=== PATIENT | female | born 2000 | race Caucasian/White ===

== ENCOUNTER 2022-05-12 09:55 | Emergency (ER) | payer MEDICAID, SELFPAY ==
[2022-05-12 09:57] VITALS: BP 98/63; PULSE 85; RESP 17; TEMP 36.6; O2SAT 100; BMI 20.8
--- NOTE | 2022-05-12 10:47 | CT_ITS ---
STUDY: CT BRAIN WITHOUT CONTRAST REASON FOR EXAM: Female, 22 years old. Headache. Near syncopal episode. RADIATION DOSAGE (If Supplied By Facility): CTDIvol = ( 44.99 ) mGy, DLP = ( 779.24 ) mGycm TECHNIQUE: Transaxial CT imaging of the brain was performed without administration of intravenous contrast material. Individualized dose optimization techniques were used for this CT. COMPARISON: No relevant priors. FINDINGS: Normal soft tissue structures. Normal calvarium. Normal size ventricles and extra-axial spaces for the patient''s age. Normal white matter tracts of the cerebral hemispheres. Normal basal ganglia and thalami. Normal brainstem. Normal cerebellum. There is no intracranial hemorrhage. There are no findings of an acute ischemic infarction. Normal visualized paranasal sinuses. CT/Brain/Head without Contrast IMPRESSION: Normal unenhanced CT scan of the brain. Electronically Signed: Joseph Scott MD at 12:05 EST ,
--- NOTE | 2022-05-12 10:48 | EKG12_ITS ---
Test Reason : syncope Blood Pressure : / mmHG Vent. Rate : 069 BPM Atrial Rate : 069 BPM P-R Int : 168 ms QRS Dur : 090 ms QT Int : 408 ms P-R-T Axes : 077 047 025 degrees QTc Int : 437 ms Normal sinus rhythm Possible Left atrial enlargement Low voltage QRS Borderline ECG Confirmed by KRISTY RIVERA, YANG ([id number]), art editor MARY BETH MARTINEZ ([id number]) on 05/14/2022 11:06:42 AM Referred By: Confirmed By:YANG WAGNER MD
--- NOTE | 2022-05-12 10:55 | EX.ED.DYSGE1 ---
HPI History of Present Illness Chief Complaint: Syncope Informant: patient Narrative Narrative: 22-year-old female states that she returned home from her honeymoon in March and has been feeling nauseated at night ever since. She states that she has taken multiple home test that was negative. She states that the nausea continues to worsen. She notes occasional retro-orbital headaches. She notes that she has not really lost any weight. She denies any vision changes. She denies any new skin or hair issues. She does has a history of psoriasis. Patient denies any changes in bowel habits. Past couple days have been worse and today she had a near syncopal event while having a significant mount of nausea. She noted that her blood pressure was low and she was pale and sweaty. She did not lose consciousness. She denies any new medications. [facility] Medical History (Updated 05/12/22 @ 11:[address] Kenrick Guardado DO) Psoriasis Medical History no medical history Home Medications ondansetron HCl 4 mg tablet 4 mg PO Q6H PRN nausea and vomiting #20 tabs 05/12/22 [Rx Last Taken Unknown] Allergy/AdvReac Type Severity Reaction Status Date / Time No Known Allergies Allergy Verified 05/12/22 09:56 Surgical History no surgical history Social History Smoking Status: Never smoker ROS ROS ED Constitutional Constitutional ED: Denies chills or weight loss Eyes Eyes: Denies change in vision or diplopia ENT ENT ED: Denies ear pain, rhinorrhea or sore throat Cardiovascular Cardiovascular: Denies chest pain, orthopnea, palpitations or racing heartbeat Respiratory/Chest Respiratory/Chest: Denies cough, dyspnea or orthopnea Gastrointestinal Gastrointestinal: Reports nausea; Denies abdominal pain, constipation, diarrhea or vomiting Genitourinary Genitourinary ED: Denies dysuria, hematuria or urinary frequency Musculoskeletal Musculoskeletal: Denies arthralgias or myalgias Integumentary Denies abscess or rash Neurologic Neurologic: Reports headache(s); Denies weakness Psychiatric Psychiatric: Denies anxiety, depression, suicidal ideation or suicidal thoughts Endocrine Endocrinology: Denies polydipsia, polyphagia or polyuria Allergic/Immunologic Allergic/Immunologic ED: Denies mouth swelling, tongue swelling or urticaria EXAM Physical Exam Const Vital Signs: 05/12/22 09:57 12/12/22 10:19 Temperature 97.9 F Temperature Source Temporal Pulse Rate 85 Respiratory Rate 17 Respiratory Effort Normal Non-Labored Respiratory Pattern Normal Blood Pressure 98/63 Blood Pressure Mean 74 Pulse Ox 100 Oxygen Delivery Method Room Air Positive well nourished and well developed General Appearance ED: well developed HEENT Reports normocephalic, head/scalp atraumatic and moist mucous membranes Eyes PERRL and EOMs intact bilaterally Neck no lymphadenopathy, supple and no JVD Resp normal respiratory effort and clear to auscultation bilaterally Cardio regular rate, regular rhythm and no murmurs GI normal to inspection, nondistended, normoactive bowel sounds and non-tender Palpation: soft Back/Spine no CVA tenderness and normal ROM Extremity normal to inspection General Extremety ED: Negative for edema General Extremity: Negative for edema Neuro oriented x3 and CN's II-XII intact bilaterally Sensorium / Orientation: alert Motor Exam: strength 5/5 throughout Psych mental status grossly normal Mood & Affect: Negative for depressed or tearful Skin no rashes or lesions noted and no wounds MDM MDM MDM Narrative Medical decision making narrative: White count 14.7. Hemoglobin 13 with a platelet count of 312. CMP is normal. Lipase of 77 amylase of 41. test is negative. My interpretation of the chest x-ray is no acute process. CT of the brain was obtained and is negative for mass or blood. Patient received Zofran and IV fluids. At this point I do not have an etiology for the patient's daily nausea. Think the near syncope is most likely vasovagal mediated. Patient will be discharged home to follow-up with primary care Lab Data Attestation: I reviewed the patient's lab results. Labs: Laboratory Results - last 24 hr 05/12/22 05/12/22 05/12/22 10:35 10:35 10:35 WBC 14.7 H RBC 4.63 Hgb 13.0 Hct 40.2 MCV 86.8 MCH 28.1 MCHC 32.3 RDW Std Deviation 38.5 RDW Coeff of Edgard 12.0 Plt Count 312 MPV 10.1 Immature Gran % (Auto) 0.500 Neut % (Auto) 82.9 H Lymph % (Auto) 9.1 L [place] % (Auto) 7.2 Eos % (Auto) 0.1 Baso % (Auto) 0.2 Absolute Neuts (auto) 12.1 H Absolute Lymphs (auto) 1.33 Nucleated RBC % 0 Sodium 136 Potassium 3.8 Chloride 103 Carbon Dioxide 28.0 Anion Gap 5 BUN 13 Creatinine 0.95 Estim Creat Clear Calc 85.80 Est GFR (MDRD) Af Amer 95 Est GFR (MDRD) Non-Af 78 BUN/Creatinine Ratio 13.7 Glucose 105 Calcium 9.0 Total Bilirubin 0.80 AST 15 ALT 29 Alkaline Phosphatase 51 Total Protein 7.8 Albumin 4.0 Globulin 3.8 Albumin/Globulin Ratio 1.1 Amylase 41 Lipase 77 Serum , Qual NEGATIVE Radiography Diagnostic Testing: Clinical Impression(s) from Imaging Studies Brain CT 05/12/22 10:47 IMPRESSION: Normal unenhanced CT scan of the brain. Electronically Signed: Joseph Scott MD at 12:05 EST , Chest X-Ray 05/12/22 11:30 IMPRESSION: Normal x-ray examination of the chest. Electronically Signed: Joseph Scott MD at 12:08 EST , EKG Initial EKG: Attestation: I personally reviewed and interpreted this EKG as follows: Comments: Normal sinus rhythm with a ventricular rate of 69 bpm Discharge Plan Triage Chief Complaint: Syncope ED Provider: Kenrick Guardado Dx/Rx/DC Orders Clinical Impression: Vasovagal near syncope, Nausea Instructions: ED Near-Fainting- Vagal Reaction Prescriptions: New ondansetron HCl 4 mg tablet 4 mg PO Q6H PRN (Reason: nausea and vomiting) Qty: 20 0RF Primary Care Provider: Isaak Ramon Referrals: Isaak Ramon MD [Primary Care Provider] - Disposition Disposition: Home, Self Care
--- NOTE | 2022-05-12 10:56 | NURSING ---
NO OLD EKGS
[2022-05-12 11:00] LABS: Absolute Lymphocyte Count 1.33 X10^3/uL (0.83-4.51); Absolute Neutrophil Count 12.1 X10^3/uL (2.0-7.7); Basophil# 0.03 X10^3/uL; Basophil% 0.2 % (0-1); Eosinophil# 0.02 X10^3/uL; Eosinophils% 0.1 % (0-5); Hematocrit 40.2 % (37-47); Lymphocyte # 1.33 X10^3/ul (0.83-4.51); Lymphocyte % 9.1 % (19-41); Mean Corp Hgb Conc 32.3 g/dL (32-36); Mean Corpuscular Hgb 28.1 pg (27.0-32.0); Mean Corpuscular Volume 86.8 fL (81-99); Mean Platelet Vol. 10.1 fl (6.2-12.0); Monocyte# 1.06 X10^3/uL; Monocyte% 7.2 % (0-10); NRBC Flagged by Analyzer 0 % (0-5); Neutrophil # 12.13 X10^3/uL (2.7-7.7); Neutrophil % 82.9 % (47-70); Platelet Count 312 K/mm3 (150-450); RBC Distribution Width SD 38.5 fl (35.1-43.9); Red Blood Count 4.63 M/mm3 (4.2-5.4); White Blood Count 14.7 K/mm3 (4.4-11.0)
[2022-05-12 11:16] LABS: ALB/GLOB Ratio 1.1 RATIO (0.9-2.4); AST(SGOT) 15 U/L (15-37); Alanine Aminotransfer ALT/SGPT 29 U/L (13-56); Alkaline Phosphatase 51 U/L (45-117); Amylase 41 U/L (25-115); Anion Gap 5 (5-15); BUN 13 mg/dL (7-18); BUN/Creat Ratio 13.7 RATIO (10-20); Chloride 103 mmol/L (98-107); Creatinine, Serum 0.95 mg/dL (0.55-1.02); EST Glomerular Filtration Rate 78 mL/min (>60); Est Glom Filt Rate - Afr Amer 95 mL/min (>60); Globulin 3.8 g/dL (2.2-4.2); Glucose 105 mg/dL (74-106); Lipase 77 U/L (73-393); Potassium 3.8 mmol/L (3.5-5.1); Protein, Total 7.8 g/dL (6.4-8.2); Sodium Level 136 mmol/L (136-145)
[2022-05-12] MEDS: Ondansetron 4 MG/2 ML Vial IV (11:17)
[2022-05-12] MEDS: 0.9% Normal Saline 1,000 ML 1000 ML IV (11:17)
[2022-05-12 11:20] LABS: Internal QC Validated? YES +Cl - CLEAR BKGD
[2022-05-12 11:21] LABS: Pregnancy, Serum, hCG Quali. NEGATIVE Negative
--- NOTE | 2022-05-12 11:30 | RAD_ITS ---
STUDY: X-RAY CHEST REASON FOR EXAM: Female, 22 years old. Near syncopal episode. TECHNIQUE: Single AP portable view of the chest. COMPARISON: None. FINDINGS: EKG electrodes are seen. The lungs are clear and expanded. There is no demonstrated pleural abnormality. Normal size heart. Normal mediastinum and blessing. Normal visualized pulmonary arteries. Normal visualized aortic arch and descending thoracic aorta. Normal visualized thoracic spine. Normal visualized ribs, clavicles, and shoulders. There is no demonstrated abnormality of the visualized soft tissue structures of the upper abdomen. RAD/Chest 1 View (Portable) IMPRESSION: Normal x-ray examination of the chest. Electronically Signed: Joseph Scott MD at 12:08 [facility] ,
[2022-05-12 12:40] VITALS: PULSE 87; RESP 17; O2SAT 98
== END 2022-05-12 12:40 | disposition home or self-care (01) ==
PROVIDERS: Emergency Provider Emergency Medicine; PCP Family Medicine; Visit Provider Emergency Medicine
DX: R55 Syncope and collapse (principal); R11.0 Nausea
CPT/HCPCS: 70450; 71045; 80053; 82150; 83690; 84703; 85025; 93005; 96361; 96374; 99283; J7030; J2405

== ENCOUNTER → 2023-05-01 | Outpatient (CLI) | payer OTHER, SELFPAY | END | disposition home or self-care (01) | PROVIDERS: PCP Family Medicine; Referring Provider Registered Nurse; Visit Provider Registered Nurse | DX: O36.80X0 Pregnancy with inconclusive fetal viability, not applicable or unspecified (principal); Z3A.00 Weeks of gestation of pregnancy not specified | CPT/HCPCS: 36415; 84702; 86850; 86900; 86901 ==

== ENCOUNTER → 2023-05-13 | Outpatient (CLI) | payer OTHER, SELFPAY ==
[2023-05-15 22:06] LABS: Chlamydia By Nucleic Acid AMP Negative (Negative); Gonococcus By Nucleic Acid AMP Negative (Negative)
[2023-05-20 22:51] LABS: HPV Reflexed? NOT INDICATED
== END | disposition home or self-care (01) ==
LOC: LABSPEC 16:51
PROVIDERS: PCP Family Medicine; Referring Provider Registered Nurse; Visit Provider Registered Nurse
DX: Z34.90 Encounter for supervision of normal pregnancy, unspecified, unspecified trimester (principal)
CPT/HCPCS: 87086; 87088; 87491; 87591; 88175; G0145

== ENCOUNTER → 2023-05-20 | Outpatient (CLI) | payer OTHER, SELFPAY | END | disposition home or self-care (01) | PROVIDERS: PCP Family Medicine; Visit Provider Advanced Practice Midwife | DX: O26.899 Other specified pregnancy related conditions, unspecified trimester (principal); R30.0 Dysuria; Z3A.00 Weeks of gestation of pregnancy not specified | CPT/HCPCS: 87086; 87088 ==

== ENCOUNTER → 2023-07-08 | Outpatient (CLI) | payer OTHER, SELFPAY ==
[2023-07-08 12:22] LABS: Absolute Lymphocyte Count 2.13 X10^3/uL (0.83-4.51); Absolute Neutrophil Count 7.1 X10^3/uL (2.0-7.7); Basophil# 0.07 X10^3/uL; Basophil% 0.7 % (0-1); Eosinophil# 0.11 X10^3/uL; Eosinophils% 1.1 % (0-5); Hematocrit 34.6 % (37-47); Hemoglobin 11.6 g/dL (12.0-15.0); Lymphocyte # 2.13 X10^3/ul (0.83-4.51); Lymphocyte % 20.7 % (19-41); Mean Corp Hgb Conc 33.5 g/dL (32-36); Mean Corpuscular Hgb 29.2 pg (27.0-32.0); Mean Corpuscular Volume 87.2 fL (81-99); Mean Platelet Vol. 9.9 fl (6.2-12.0); Monocyte# 0.78 X10^3/uL; Monocyte% 7.6 % (0-10); NRBC Flagged by Analyzer 0 % (0-5); Neutrophil # 7.14 X10^3/uL (2.7-7.7); Neutrophil % 69.5 % (47-70); Platelet Count 293 K/mm3 (150-450); RBC Distribution Width CV 13.7 % (11.6-14.6); RBC Distribution Width SD 43.8 fl (35.1-43.9); Red Blood Count 3.97 M/mm3 (4.2-5.4); White Blood Count 10.3 K/mm3 (4.4-11.0)
[2023-07-08 13:42] LABS: HIV - WCH Non-Reactive (Nonreactive); Hepatitis B Surface Antigen Non-Reactive (Nonreactive); Hepatitis C Antibody Non-Reactive (Nonreactive); Rubella IgG Reactive (Nonreactive); Syphilis Antibodies Non-reactive
--- OUTSIDE RECORDS SUMMARY | 2023-07-08 16:18 | XMS RPT_ITS | CCD ---
Author Name Unknown Address [address] [facility] [address] [place] [address] Organization [facility] Care Team Providers Care Union Organizer Name Role Phone Sunil Reyna MD Primary Care Provider BASAR, JONATHAN Admitting Unavailable BASAR JONATHAN Attending Unavailable SUNIL REYNA Primary Care Unavailable MERANTO, CRYSTAL Attending Unavailable SUNIL REYNA Primary Care Unavailable MERANTO, CRYSTAL Attending Unavailable SUNIL REYNA Referring Unavailable SUNIL REYNA Primary Care Unavailable MERANTO, CRYSTAL Referring Unavailable SUNIL REYNA Attending Unavailable SUNIL REYNA Primary Care Unavailable SUNIL REYNA Attending Unavailable Allergies Allergy Classification Reported Allergen(s) Allergy Type Date of Onset Reaction(s) Facility [facility] (1 source) [facility] Drug Allergy 11-08-2020 [facility] Unclassified (6 sources) Milk-Related Compounds Propensity to adverse reactions to drug 11-08-2020 [facility] (4 sources) [facility] Drug Allergy 11-08-2020 [facility] Medications Current Medications Medication Drug Class(es) Dates Sig (Normalized) Sig (Original) ondansetron 4 mg oral tablet (3 sources) Serotonin-3 Receptor Antagonist Start: 10-13-2022 take 1 tablet by mouth every eight hours as needed for nausea and vomiting ondansetron (Zofran) 4 MG tablet Take 1 tablet (4 mg) by mouth every 8 hours as needed for nausea or vomiting. 20 tablet 0 10/13/2022 Active Problems Active Problems Problem Classification Problem Date Documented Da te Episodic/Chronic Anxiety disorders (6 sources) Anxiety; Translations: [Anxiety disorder, unspecified] Onset: 02-21-2019 02-21-2019 Chronic Miscellaneous mental health disorders (6 sources) Eating disorder; Translations: [Eating disorder, unspecified] Onset: 05-13-2017 05-13-2017 Chronic Mood disorders (6 sources) Recurrent major depressive episodes, moderate ; Translations: [Major depressive disorder, recurrent, moderate] Onset: 03-21-2020 03-21-2020 Chronic Other inflammatory condition of skin (7 sources) Psoriasis; Translations: [Psoriasis, unspecified] Onset: 09-19-2016 Chronic Other non-traumatic joint disorders (1 source) Hip pain; Translations: [Pain in unspecified hip] Episodic Residual codes; unclassified (1 source) Gestation period, 8 weeks; Translations: [8 weeks gestation of ] Onset: 04-17-2023 04-17-2023 Episodic Unclassified (2 sources) Results; Translations: [Results] Onset: 04-17-2023 Past or Other Problems Problem Classification Problem Date Documented Da te Episodic/Chronic Abdominal pain (9 sources) Generalized abdominal pain; Translations: [Generalized abdominal pain] Onset: 06-11-2022 06-11-2022 Episodic Acute and chronic tonsillitis (1 source) Acute tonsillitis; Translations: [Acute tonsillitis, unspecified] Onset: 02-24-2018 Resolved: 02-21-2019 02-21-2019 Episodic Gastritis and duodenitis (2 sources) Gastritis, unspecified, without bleeding; Translations: [Gastritis, unspecified, without bleeding] Onset: 07-22-2022 Episodic Gastrointestinal hemorrhage (9 sources) Blood-tinged feces; Translations: [Melena] Onset: 06-11-2022 Resolved: 04-17-2023 06-11-2022 Episodic Genitourinary symptoms and ill-defined conditions (5 sources) Dysuria; Translations: [Dysuria] Onset: 05-14-2022 Resolved: 04-17-2023 05-14-2022 Episodic Nausea and vomiting (9 sources) Nausea; Translations: [Nausea] Onset: 05-13-2022 06-11-2022 Episodic Other connective tissue disease (1 source) Plantar fasciitis of right foot; Translations: [Plantar fascial fibromatosis] Onset: 09-19-2016 Resolved: 02-21-2019 02-21-2019 Episodic Other gastrointestinal disorders (2 sources) Constipation, unspecified; Translations: [Constipation, unspecified] Onset: 07-07-2022 Episodic Syncope (10 sources) Vasovagal symptom; Translations: [Syncope and collapse] Onset: 05-13-2022 Resolved: 04-17-2023 05-13-2022 Episodic Results Test Name Value Interpretation Reference Range Facil ity Encounters Encounter Date Encounter Type Care Provider Facility Start: 05-21-2023 ambulatory Evelyn Baker RN [facility] Clinical Communication Start: 05-21-2023 Patient encounter procedure Evelyn Baker RN [facility] Clinical Communication Start: 04-17-2023 End: 04-17-2023 ambulatory SUNIL REYNA [facility] Start: 10-11-2022 Refill Sunil Reyna MD Work Phone: [facility] Start: 07-22-2022 End: 07-22-2022 ambulatory CRYSTAL MERANTO [facility] Start: 07-07-2022 End: 07-07-2022 ambulatory JONATHAN BJAR [facility] Start: 07-02-2022 End: 07-02-2022 Subsequent hospital visit by physician [facility] Exam Room [address] [facility] [address] Procedures Date Procedure Procedure Detail Performing Clinician Start: 01-01-2021 Radiologic examinati on pelvis 1/2 views Rocky Dave MD Work Phone: Plan of Treatment Date Care Activity Detail Author Start: 01-26-2050 Zoster Vaccines (1 of 2) Zoste r Vaccines (1 of 2) [facility] Start: 01-30-2023 Influenza vaccination [facility] Start: 01-26-2023 DTaP/Tdap/Td vaccine (7 - Td or Tdap) DTaP/Tdap/Td vaccine (7 - Td or Tdap) [facility] Work Phone: Start: 01-26-2023 DTaP/Tdap/Td Vaccine s (7 - Td or Tdap) DTaP/Tdap/Td Vaccines (7 - Td or Tdap) [facility] Start: 11-23-2021 Screening for Chlamy ruslan trachomatis Chlamydia screen [facility] Work Phone: Immunizations Immunization Date Immunization Notes Care Provider Fa julien 02-12-2017 Human Papillomavirus 9-valent vaccine Rocky Dave MD Work Phone: [facility] Work Phone: 02-12-2017 HPV, unspecified formulation Sunil Reyna MD Work Phone: [facility] 01-26-2013 tetanus toxoid, redu niall diphtheria toxoid, and acellular pertussis vaccine, adsorbed Rocky Dave MD Work Phone: [facility] Work Phone: 02-06-2006 diphtheria, tetanus toxoids and acellular pertussis vaccine Rocky Dave MD Work Phone: [facility] 01-07-2006 measles, mumps and rubella virus vaccine Rocky Dave MD Work Phone: [facility] Work Phone: 01-07-2006 poliovirus vaccine, inactivated Rocky Dave MD Work Phone: [facility] Work Phone: 06-15-2001 diphtheria, tetanus toxoids and acellular pertussis vaccine Rocky Dave MD Work Phone: [facility] Work Phone: 06-15-2001 haemophilus influenz ae type b vaccine, PRP-OMP conjugate Rocky Dave MD Work Phone: [facility] Work Phone: 06-15-2001 hepatitis B vaccine, unspecified formulation Rocky Dave MD Work Phone: [facility] Work Phone: 06-15-2001 measles, mumps and rubella virus vaccine Rocky Dave MD Work Phone: [facility] Work Phone: 06-15-2001 varicella virus vaccine Will sara Dave MD Work Phone: [facility] Work Phone: 2000 diphtheria, tetanus toxoids and acellular pertussis vaccine Rocky Dave MD Work Phone: [facility] Work Phone: 2000 haemophilus influenz ae type b vaccine, PRP-OMP conjugate Rocky Dave MD Work Phone: [facility] Work Phone: 2000 pneumococcal conjuga te vaccine, 7 valent Rocky Dave MD Work Phone: [facility] Work Phone: 2000 poliovirus vaccine, inactivated Rocky Dave MD Work Phone: [facility] Work Phone: 2000 diphtheria, tetanus toxoids and acellular pertussis vaccine Rocky Dave MD Work Phone: [facility] Work Phone: 2000 pneumococcal conjuga te vaccine, 7 valent Rocky Dave MD Work Phone: [facility] Work Phone: 2000 poliovirus vaccine, inactivated Rocky Dave MD Work Phone: [facility] Work Phone: 2000 diphtheria, tetanus toxoids and acellular pertussis vaccine Rocky Dave MD Work Phone: [facility] Work Phone: 2000 haemophilus influenz ae type b vaccine, PRP-OMP conjugate Rocky Dave MD Work Phone: [facility] Work Phone: 2000 hepatitis B vaccine, unspecified formulation Rocky Dave MD Work Phone: [facility] 2000 pneumococcal conjuga te vaccine, 7 valent Rocky Dave MD Work Phone: [facility] Work Phone: 2000 poliovirus vaccine, inactivated Rocky Dave MD Work Phone: [facility] Work Phone: 2000 haemophilus influenz ae type b vaccine, PRP-OMP conjugate Rocky Dave MD Work Phone: [facility] Work Phone: 2000 hepatitis B vaccine, unspecified formulation Rocky Dave MD Work Phone: [facility] Work Phone: NEGATED: Highlighted row has not occurred!02-26-2018 Influenza, Quadv, 6 mo and older, IM, PF (Flulaval, Fluarix) Rocky Dave MD Work Phone: [facility] Work Phone: Payers Date Payer Category Payer Medicaid [id number] 2022 Medicaid [id number] 2022 Medicaid [id number] 2022 Unknown [employer] [id number] 2022-Present [address] [place] [address] Commercial [id number] 2022 Unknown [id number] 2020 Unknown [facility] [id number] 2020-Present [phone] [address] [place] [address] [id number] Social History Date Type Detail Facility Start: 01-01-2021 Tobacco smoking stat [facility] Never smoker [facility] Start: 01-01-2021 Tobacco use and exposure Never used [facility] Start: 01-01-2021 End: 04-17-2023 Alcohol intake Current non-drinker of alcohol (finding) [facility] Work Phone: Start: 11-23-2020 History SDOH Financial 4 [facility] Work Phone: Start: 11-23-2020 End: 05-13-2022 History SDOH Food Worry 1 [facility] Work Phone: Start: 2000 Sex Assigned At Not on file [facility] Work Phone: Start: 06-21-2022 End: 07-01-2022 Exposure to SARS-CoV-2 (event) Not sure [facility] Start: 05-13-2022 History SDOH Financial 5 [facility] Start: 05-13-2022 End: 07-07-2022 History SDOH IPV Fear 2 [facility] Start: 05-13-2022 End: 07-07-2022 History of Social function [facility] Start: 05-13-2022 End: 07-07-2022 Humiliation, Afraid, Rape, and Kick questionnaire [HARK] [facility] Within the last year , have you been afraid of your partner or ex-partner? No [facility] How hard is it for y ou to pay for the very basics like food, housing, medical care, and heating Not hard at all [facility] (I/We) worried wheth er (my/our) food would run out before (I/we) got money to buy more. Never true [facility] Start: 03-01-2023 [facility]al [facility] Goals Date Patient Goal Desired Activity /State Clinical Notes 02-01-2021 to 05-21-2023 Telephone Encounter - Evelyn Baker RN - 05/21/2023 1:19 PM ESTTelephone Encounter - Evelyn Baker RN - 05/21/2023 1:19 PM EST Note Date & Type Note Facility 05-21-2023 Telephone encounter Note S: The patient is calling the [facility] about urinary symptoms B: She is 10 weeks - no bleeding or related issues A: She was to the OB yesterday; it was positive for antibiotics and also did a culture. They are supposed to be sending in an antibiotic for her but it is not there yet. She is asking for advice. She could be seen in [place] however, she is working all day tomorrow. R: She last talked to them this morning; often these requests take time and are done at the end of the day when a provider is done seeing patients or the provider may be currently delivering a baby. I would give it time and call the pharmacy again this evening. Reason for Disposition Information only question and nurse able to answer Protocols used: Information Only Call - No [id number] [facility] 05-21-2023 Miscellaneous Notes S: The patient is calling the [facility] about urinary symptoms B: She is 10 weeks - no bleeding or related issues A: She was to the OB yesterday; it was positive for antibiotics and also did a culture. They are supposed to be sending in an antibiotic for her but it is not there yet. She is asking for advice. She could be seen in [place] however, she is working all day tomorrow. R: She last talked to them this morning; often these requests take time and are done at the end of the day when a provider is done seeing patients or the provider may be currently delivering a baby. I would give it time and call the pharmacy again this evening. Reason for Disposition Information only question and nurse able to answer Protocols used: Information Only Call - No [id number] documented in this encounter [facility] 10-13-2022 Telephone encounter Note Rx sent. [facility] 10-13-2022 Miscellaneous Notes Rx sent. Prescription Request: Last medication check: 06-11-22 Last physical exam: 02-21-19 Next scheduled appointment: none Last date of refill on this medication 09-09-22 documented in this encounter [facility] 10-13-2022 Telephone encounter Note Prescription Request: Last medication check: 06-11-22 Last physical exam: 02-21-19 Next scheduled appointment: none Last date of refill on this medication 09-09-22 [facility] 07-07-2022 Note Patient: Raul Campos ic Procedure Summary Date: 07/07/22 Room / Location: [place] [address] / [facility] Gastroenterology Anesthesia Start: 1132 Anesthesia Stop: 1213 Procedures: EGD, COLONOSCOPY COLONOSCOPY Diagnosis: Nausea with vomiting, unspecified Hemorrhage of anus and rectum Generalized abdominal pain Constipation, unspecified (Nausea with vomiting, unspecified [R11.2]) (Hemorrhage of anus and rectum [K62.5]) (Generalized abdominal pain [R10.84]) (Constipation, unspecified [K59.00]) Providers: Jonathan Chavez MD Responsible Provider: Edi Costello Jr., MD Anesthesia Type: TIVA ASA Status: 2 Anesthesia Type: TIVA Vitals Value Taken Time BP 97/58 07/07/22 1215 Temp 97.4 07/07/22 1215 Pulse 84 07/07/22 1215 Resp 16 07/07/22 1215 SpO2 100 07/07/22 1215 Anesthesia Post Evaluation Patient location during evaluation: PACU Patient participation: complete - patient participated Level of consciousness: awake and alert Pain score: 0 Pain management: satisfactory to patient Multimodal analgesia pain management approach Airway patency: patent Two or more strategies used to mitigate risk of obstructive sleep apnea Cardiovascular status: acceptable and hemodynamically stable Respiratory status: acceptable Hydration status: acceptable No notable events documented. MIPS #430 PONV Patient did not receive an inhalational anesthetic ([id number] MIPS # 424 Perioperative Temperature Management Anesthesia time was less than 60 minutes ([id number]) MIPS #477 Multimodal Pain Management Not emergent case Patient was not administered multimodal pain management Patient reports no pain in PACU MIPS #404 Anesthesiology Smoking Abstinence The patient is not a current smoker (e.g. cigarette, cigar, pipe, e-cigarette/vaping/marijuana) I completed my handoff to the receiving clinician during which we: 1. Identified the patient 2. Identified the responsible provider 3. Reviewed the pertinent medical history 4. Discussed the surgical course 5. Reviewed intra-op anesthesia management and issues during anesthesia 6. Set expectations for post-procedure period 7. Allowed opportunity for questions and acknowledgement of understanding. [facility] 07-07-2022 Note Patient: Raul Campos ic Procedure Summary Date: 07/07/22 Room / Location: [place] [address] / [facility] Gastroenterology Anesthesia Start: 1132 Anesthesia Stop: 1213 Procedures: EGD, COLONOSCOPY COLONOSCOPY Diagnosis: Nausea with vomiting, unspecified Hemorrhage of anus and rectum Generalized abdominal pain Constipation, unspecified (Nausea with vomiting, unspecified [R11.2]) (Hemorrhage of anus and rectum [K62.5]) (Generalized abdominal pain [R10.84]) (Constipation, unspecified [K59.00]) Providers: Jonathan Chavez MD Responsible Provider: Edi Costello Jr., MD Anesthesia Type: TIVA ASA Status: 2 Anesthesia Type: TIVA Vitals Value Taken Time BP 97/58 07/07/22 1213 Temp 97.4 07/07/22 1213 Pulse 84 07/07/22 1213 Resp 16 07/07/22 1213 SpO2 100 07/07/22 1213 Anesthesia Post Evaluation Patient location during evaluation: PACU Patient participation: complete - patient participated Level of consciousness: sleepy but conscious Pain management: satisfactory to patient Airway patency: patent Dental Injury: no Cardiovascular status: acceptable, blood pressure returned to baseline and hemodynamically stable Respiratory status: acceptable and spontaneous ventilation Hydration status: euvolemic Nausea/Vomiting: controlled No notable events documented. Patient can be discharged once all PACU criteria has been met. [facility] 07-07-2022 Note GASTROENTEROLOGY PHY SICIAN PRE PROCEDURE NOTE HPI: Raul Dewitt is a 22 y.o. female who is here today for planned endoscopic examination. All: Allergies Allergen Reactions Milk-Related Compounds [facility] Meds: No current facility-administered medications on file prior to encounter. Current Outpatient Medications on File Prior to Encounter Medication Sig Dispense Refill bisacodyl (Dulcolax) 5 MG EC tablet Do not crush, chew, or split. 1 day before the procedure, take 4 dulcolax at 11:00am. On day of the procedure, take 2 dulcolax at 4:00am. 6 tablet 0 ondansetron (Zofran) 4 MG tablet 4 mg. polyethylene glycol (GaviLyte-G) 236 g solution Day before the procedure, start at 5pm. Drink the 1st half of jug every 20-30 min. Finish by 7pm. Day of the procedure, drink 2nd half of the jug, 8 ounces, every 20-30 min, start at 4am. Complete by 6am. 4000 mL 0 psyllium (Metamucil Smooth Texture) 58.6 % powder Take 5.12 g (3 g of fiber) by mouth daily. 283 g 11 PMH: Past Medical History: Diagnosis Date Depression Eating disorder Psoriasis No reactions to anesthesia in the past. Airway patent PE: VS: BP 116/65 Pulse 74 Temp 37.3 ?C (99.2 ?F) (Temporal) Resp 14 Ht 5' 6 (1.676 m) Wt 128 lb (58.1 kg) SpO2 94% BMI 20.66 kg/m? Body mass index is 20.66 kg/m?. General: Patient in no distress CVS: Regular rate & rhythm Respiratory: Clear to auscultation Abdomen: soft and non tender ASA score : 3 ASSESSMENT & PLAN: Risks & benefits of the endoscopic procedure(s) and MAC /GA sedation were personally explained to patient / family along with alternatives to the procedure in detail including radiological and surgical options. The risks of the endoscopic procedure include but are not limited to risk from anesthesia, respiratory failure, infection, bleeding, perforation, pancreatitis with its sequelae , damage to the adjacent organs, missed lesions and need for further procedure, surgery or interventional radiological intervention, from procedure or complications. We made a shared decision to proceed with planned procedure []EGD []Colonoscopy [x]EGD&Colonoscopy Jonathan Chavez MD Gastroenterology [facility] 07-07-2022 Note Endoscopy Center- [facility] Patient Name: Raul Dewitt Procedure Date: 07/07/2022 11:21 AM Gender: Female Date of : 2000 Age: 22 Admit Type: Outpatient Note Status: Finalized Endoscopist: Jonathan Chavez MD Procedure: Upper GI endoscopy Indications: Nausea, bloating Findings: Esophagus was normal Erythema and small erosions noted in the gastric antrum, random gastric biopsies obtained D1 and D2 were normal, biopsies obtained Impression: Gastric erosions Recommendation: - Patient has a contact number available for emergencies. The signs and symptoms of potential delayed complications were discussed with the patient. Return to normal activities tomorrow. Written discharge instructions were provided to the patient. - Continue present medications. - Omeprazole 40 mg twice daily at least 30 minutes before meals for 2 months followed by once daily - Avoid NSAIDs - Resume previous diet. - Return to referring physician as previously scheduled. Referring MD: Suinl Reyna MD Medicines: Monitored Anesthesia Care Procedure: Pre-Anesthesia Assessment: - Prior to the procedure, a History and Physical was performed, and patient medications and allergies were reviewed. The patient is competent. The risks and benefits of the procedure and the sedation options and risks were discussed with the patient. All questions were answered and informed consent was obtained. Patient identification and proposed procedure were verified by the physician, the nurse and the apprentice architect in the pre-procedure area in the procedure room in the endoscopy suite. Mental Status Examination: normal. Airway Examination: normal oropharyngeal airway and neck mobility. Respiratory Examination: clear to auscultation. CV Examination: normal. Prophylactic Antibiotics: The patient does not require prophylactic antibiotics. Prior Anticoagulants: The patient has taken no anticoagulant or antiplatelet agents. ASA Grade Assessment: II - A patient with mild systemic disease. After reviewing the risks and benefits, the patient was deemed in satisfactory condition to undergo the procedure. The anesthesia plan was to use monitored anesthesia care (MAC). Immediately prior to administration of medications, the patient was re-assessed for adequacy to receive sedatives. The heart rate, respiratory rate, oxygen saturations, blood pressure, adequacy of pulmonary ventilation, and response to care were monitored throughout the procedure. The physical status of the patient was re-assessed after the procedure. After obtaining informed consent, the endoscope was passed under direct vision. Throughout the procedure, the patient's blood pressure, pulse, and oxygen saturations were monitored continuously. The Endoscope was introduced through the mouth, and advanced to the second part of duodenum. The upper GI endoscopy was accomplished with ease. The patient tolerated the procedure well. Complications: No immediate complications. Estimated blood loss: None. Attending Participation: I personally performed the entire procedure. Jonathan hCavez MD 07/07/2022 11:57:11 AM This report has been signed electronically. Number of Addenda: 0 Note Initiated On: 07/07/2022 11:21 AM [facility] 07-07-2022 Note Endoscopy Center- [facility] Patient Name: Raul Dewitt Procedure Date: 07/07/2022 11:19 AM Gender: Female Date of : 2000 Age: 22 Admit Type: Outpatient Note Status: Finalized Endoscopist: Jonathan Chavez MD Procedure: Colonoscopy Indications: Constipation Findings: TI was intubated and it was normal Colon segments were normal Impression: Normal colonoscopy Recommendation: - Patient has a contact number available for emergencies. The signs and symptoms of potential delayed complications were discussed with the patient. Return to normal activities tomorrow. Written discharge instructions were provided to the patient. - Continue present medications. - Resume previous diet. - High fiber diet. - Return to referring physician as previously scheduled. Referring MD: Sunil Reyna MD Medicines: Monitored Anesthesia Care Procedure: Pre-Anesthesia Assessment: - Prior to the procedure, a History and Physical was performed, and patient medications and allergies were reviewed. The patient is competent. The risks and benefits of the procedure and the sedation options and risks were discussed with the patient. All questions were answered and informed consent was obtained. Patient identification and proposed procedure were verified by the physician, the nurse and the apprentice architect in the pre-procedure area in the procedure room in the endoscopy suite. Mental Status Examination: alert and oriented. Airway Examination: normal oropharyngeal airway and neck mobility. Respiratory Examination: clear to auscultation. CV Examination: normal. Prophylactic Antibiotics: The patient does not require prophylactic antibiotics. Prior Anticoagulants: The patient has taken no anticoagulant or antiplatelet agents. ASA Grade Assessment: III - A patient with severe systemic disease. After reviewing the risks and benefits, the patient was deemed in satisfactory condition to undergo the procedure. The anesthesia plan was to use monitored anesthesia care (MAC). Immediately prior to administration of medications, the patient was re-assessed for adequacy to receive sedatives. The heart rate, respiratory rate, oxygen saturations, blood pressure, adequacy of pulmonary ventilation, and response to care were monitored throughout the procedure. The physical status of the patient was re-assessed after the procedure. After I obtained informed consent, the scope was passed under direct vision. Throughout the procedure, the patient's blood pressure, pulse, and oxygen saturations were monitored continuously. The Colonoscope was introduced through the anus and advanced to the terminal ileum. The colonoscopy was performed with ease. The patient tolerated the procedure well. The quality of the bowel preparation was excellent. The terminal ileum, ileocecal valve, appendiceal orifice, and rectum were photographed. Complications: No immediate complications. Attending Participation: I personally performed the entire procedure. Jonathan Chavez MD 07/07/2022 12:09:24 PM This report has been signed electronically. Number of Addenda: 0 Note Initiated On: 07/07/2022 11:19 AM [facility] 07-07-2022 Note Patient: Raul schuler Procedure Information Date/Time: 07/07/22 1345 Procedures: EGD, COLONOSCOPY - EGD/Colon 60 min. COLONOSCOPY Location: [place] [address] / [facility] Gastroenterology Providers: Jonathan Chavez MD Relevant Problems Neuro/Psych (+) Anxiety (+) Moderate episode of recurrent major depressive disorder (HCC) Past Medical History: Past Medical History: No date: Depression No date: Eating disorder No date: Psoriasis Past Surgical History: Past Surgical History: No date: TONSILLECTOMY Social History: TOBACCO: reports that she has never smoked. She has never used smokeless tobacco. ETOH: reports no history of alcohol use. Social History Substance and Sexual Activity Drug Use No Family History: Family History Problem Relation Name Age of Onset ? Substance Abuse Mother ? No Known Problems Father Screening: Having periods Clinical information reviewed: Tobacco Allergies Meds Med Hx Surg Hx OB Status Fam Hx Soc Hx Physical Exam Airway Mallampati: II TM distance: >3 FB Neck ROM: full Mouth Open: normalendotracheal tube not in place Cardiovascular Dental Pulmonary Abdominal Anesthesia Plan ASA 2 TIVA The patient is not a current smoker. Anesthetic plan and risks discussed with patient. patient is NPO CELESTINE Screening Labs: Lab Results Component Value Date WBC 8.0 06/11/2022 HGB 12.5 06/11/2022 HCT 37.2 06/11/2022 MCV 85.3 06/11/2022 PLT 351 06/11/2022 Lab Results Component Value Date NA 138 11/23/2020 K 4.1 11/23/2020 CL 105 11/23/2020 CO2 22 06/11/2022 BUN 16 06/11/2022 CREATININE 0.80 06/11/2022 GLUCOSE 81 06/11/2022 CALCIUM 9.5 06/11/2022 PROT 7.2 06/11/2022 ALKPHOS 42 06/11/2022 AST 21 06/11/2022 ALT 17 06/11/2022 EGFR 107 06/11/2022 No echocardiogram results found for the past 14 days No results found for this or any previous visit. [facility] 06-30-2022 Note Patient is scheduled for a procedure(s) on 07/07/[address] Chavez. Message has been left reminding the patient of their upcoming procedures and to give the office a call if they have questions. If mychart is available a copy of the prep was resent. Call back number also provided and office hours. [facility] 06-11-2022 Note CMP, C-reactive prot ein and sed rate, CT scan of the abdomen with contrast and GI referral. [facility] 02-27-2021 Note HNO ID: [id number] Author: Kenrick Hardin MD Service: ? Author Type: Physician Type: Progress Notes Filed: 02/27/2021 12:44 PM Note Text: Subjective: Patient status post a punch biopsy to her right breast completed on 02/18/2021. This came back as basilar hyperpigmentation with melanoderma. There is no signs of malignancy. And some bacteria of folliculitis was identified. Objective:. Last menstrual period 01/30/2021. Suture was removed site is clean without signs of infection Assessment: Aftercare Plan: This point I do not think there is any further biopsies we need to do a pigmented lesions. She is continue to use Madelyn cream on the nipple itself to make sure that it stays moist and if it has any further scaling or cracking I would like to see her back. [facility] 02-18-2021 Note HNO ID: [id number] Author: Vonda Shah LPN Service: ? Author Type: ? Type: Progress Notes Filed: 02/18/2021 3:49 PM Note Text: UNIVERSAL PROTOCOL / SAFETY CHECKLIST Procedure to be Performed: Punch Biopsy Right Breast Sign In: A Moment of CARE was completed. Personnel directly involved with the procedure wore the appropriate PPE (Personal Protective Equipment). Patient/Surrogate Stated/Verified: PATIENT VERIFIED(optional for EMERGENT procedures): Patient name, Date of , Relevant allergies and The intended procedure Time Out Communication: Intended patient and procedure match the source documents. Consent documented and matches the intended procedure. Sign Out: SIGN OUT (optional for EMERGENT procedures): All specimen containers correctly labeled. Vonda Shah LPN [facility] 02-18-2021 Note HNO ID: [id number] Author: Kenrick Hardin MD Service: ? Author Type: Physician Type: Progress Notes Filed: 02/18/2021 3:45 PM Note Text: Preoperative diagnosis: Uncertain skin lesion to right breast Postoperative diagnosis: The same Procedure: 3 mm punch biopsy of abnormal skin lesion to right breast Surgeon: Lashawn Procedure: At the 10 o'clock position of the right breast patient had several darkened pigmented lesions with some atypical symmetry to them and being black in nature. I prepped the area with Betadine. I injected 1% lidocaine plain. A 3 mm punch biopsy was attained of this lesion. Skin was brought together with a single suture of 5-0 nylon. Sterile dressings were applied and the patient tolerated the procedure well. Patient has a scaly area on her nipple areolar complex at the 6 o'clock position in addition the patient has psoriasis on the right side of her chest extending up towards the breast area. I do not think I want to do a punch biopsy of this today I would like for her to use some Madelyn cream for 2 weeks and if she does not notice any changes in the itching or the softness of the skin and I like for her to use steroid cream for 2 weeks. If at that time we are still dealing with an atypical scaly lesion then I will do a punch biopsy of this area on her nipple. [facility] 02-12-2021 Note HNO ID: [id number] Author: Maria Isabel Orona MD Service: ? Author Type: Physician Type: Progress Notes Filed: 02/14/2021 3:33 PM Note Text: Raul Blevins 2000 REFERRING PHYSICIAN: Lucia Colin MD CHIEF COMPLAINT: New HPI: The patient is a 21 year old female presents with skin changes of uncertain nature of her right breast. She was concerned about these skin changes and therefore went to see her bottle hop. She is referred to this office for further evaluation. She notes a patchy area of the right areolar that is pruritic. She has noted this for about two months. She has also noted multiple dark nevi of an area lateral to her nipple/areolar complex for which she states that she is concerned about. She notes yellow discharge from the scaly patch of skin. She denies nipple discharge. She states that she sometimes feels a lump beneath the scaly patch, but notes none at present. She does not know her family history for cancer. PAST MEDICAL HISTORY Diagnosis Date - Psoriasis PAST SURGICAL HISTORY: none Current Outpatient Medications Medication Sig - diazePAM (VALIUM) 5 mg tablet Take 1 tablet by mouth available for use prior to procedure for 1 day. ALLERGIES: Patient has no known allergies. PERSONAL HISTORY: Social History Tobacco Use - Smoking status: Never Smoker - Smokeless tobacco: Never Used Vaping Use - Vaping Use: Never used Substance Use Topics - Alcohol use: Never - Drug use: Never FAMILY HISTORY Problem Relation Age of Onset - Multiple Sclerosis Maternal Grandmother The review of systems data was entered by the nurse and reviewed by dc Nursing Notes: Wendy Obando Ma 02/12/2021 9:16 AM Signed REVIEW OF SYSTEMS: General: The patient denies fatigue, denies weight loss, denies weight gain, denies feeling hot, and denies feelings of cold. Eyes: The patient denies glaucoma, denies eye injury/surgery, wears glasses or contacts. Ear/Nose/Throat: The patient NOTES allergies, denies hayfever, denies ear infections, and denies bloody noses. Cardiovascular: The patient denies chest pain, denies heart disease, denies high blood pressure,denies cardiac stent, denies prior heart attack, denies irregular heart beat, denies high cholesterol, denies poor circulation, denies heart failure, other cardiac issues, denies claudication, denies cold feet, denies peripheral arterial stent. Respiratory: The patient denies tuberculosis, denies pneumonia, denies frequent cough, denies pulmonary embolism, denies shortness of breath, and denies coughing up blood. Gastrointestinal: The patient denies difficulty swallowing, denies acid reflux, denies ulcers, denies vomiting, denies jaundice/hepatitis, denies gallbladder problems, denies black or tarry stools, denies hemorrhoids, denies bleeding from rectum, denies diverticulitis, denies constipation, denies diarrhea, denies loss of stool control, and denies hernias. Kidney/Bladder: The patient denies kidney stones, denies urine infections, and denies bloody urine. Skin: The patient denies a history of skin cancer, denies bleeding/changing moles, and denies a history of skin rash. Neurologic: The patient denies a history of epilepsy/convulsions, denies headaches, denies head/spinal injuries, and denies stroke/TIA. Psychiatric: The patient denies psychiatric medications, denies depression, and denies voices, denies substance abuse. Endocrine: The patient denies thyroid disorders, denies diabetes, and denies hormonal problems. Hematologic: The patient denies a history of bruising, denies bleeding, and denies anemia, denies blood clots. Infections: The patient denies a history of measles and mumps, denies rheumatic fever, and denies sexually transmitted diseases. Musculoskeletal: The patient denies back pain/injury, denies back problems, denies sciatica, denies knee/foot trouble, denies arthritis, or denies gout. Obstetrical: menarche onset - she doesn't know, LMP first week in Jan, denies hormones use, nulliparous When was patient's last Mammogram screening? N/A Last Colonoscopy: b/a Wendy Obando Ma PHYSICAL EXAMINATION: General: The patient is 21 year old female, well nourished, well hydrated in no acute distress. The patient is oriented to time, place, and person. VITALS: Blood pressure 118/74, pulse 80, temperature 36.5 ?C (97.7 ?F), temperature source Temporal Artery, resp. rate 14, height 165.1 cm (5' 5 ), weight 59.4 kg (131 lb), last menstrual period 01/30/2021, SpO2 100 %. Body mass index is 21.8 kg/m?. Head ? Normocephalic. EOM intact with sclera clear and no icterus noted. Wearing glasses Neck - supple with no jugular venous distention noted. Trachea is midline. No thyroid enlargement or thyroid nodules detected. No masses noted. Chest/breast ? no asymmetry of breasts noted, multiple skin nevi just lateral to right nipple/areolar complex, lower area o (more content not included)... [facility] 02-01-2021 Note HNO ID: [id number] Author: Lucia Colin MD Service: ? Author Type: Physician Type: Progress Notes Filed: 02/01/2021 2:20 PM Note Text: Raul Blevins is a 21 year old female who presents for breast problem. HPI: Over the right breast she has had pruritis and burning for 1.5 months. She reports possible nipple discharge that is orange in color. She has noticed skin changes over her right breast as well, and she describes this as what appears to be new freckles along her outer right breast. She has also noticed a lump underneath her right breast that is tender and has been fluctuating in size. She does not know her family history. Here with a friend who she lives with. PAST MEDICAL HISTORY Diagnosis Date - Psoriasis History reviewed. No pertinent surgical history. FAMILY HISTORY Problem Relation Age of Onset - Multiple Sclerosis Maternal Grandmother Social History Tobacco Use - Smoking status: Never Smoker - Smokeless tobacco: Never Used Vaping Use - Vaping Use: Never used Substance Use Topics - Alcohol use: Never - Drug use: Never No current outpatient medications on file. No current facility-administered medications for this visit. Allergies As of Date: 02/01/2021 (No Known Allergies) Fully Assessed 02/01/2021 REVIEW OF SYSTEMS Breast: See HPI. Expanded ROS: N/A Allergies and current medication updated:Yes EXAM: BP 90/60 Wt 136 lb (61.7kg) LMP 12/30/2020 GENERAL: pleasant, female in no apparent distress HEENT: Normocephalic, atraumatic, mucus membranes moist and no lesions NECK: full range of motion DERMATOLOGY: Psoriasis noted BREAST: The left breast is soft, non-tender, no dominant mass, normal nipple-areolar complex, no lymphadenopathy and no nipple discharge. There are several small nevi along the outer right breast, no nipple drainage, no lumps or masses palpated, normal nipple-areolar complex. CHEST: Normal inspiratory effort NEURO: exam grossly non-focal EXTREMITIES: normal ASSESSMENT AND PLAN: Encounter Diagnosis ICD-10-CM 1. Nipple discharge N64.52 PROLACTIN BLD US BREAST LTD RT [facility] RT CONSULT TO GENERAL SURGERY 2. Breast skin changes R23.4 US BREAST LTD RT [facility] RT CONSULT TO GENERAL SURGERY 3. Pruritus of skin L29.9 US BREAST LTD RT [facility] RT CONSULT TO GENERAL SURGERY 4. Lump or mass in breast N63.0 US BREAST LTD RT [facility] RT CONSULT TO GENERAL SURGERY Prolactin level Breast imaging ordered Recommend biopsy of new nevi along outer right breast Consultation placed to Dr. Orona with general surgery Discussed need for annual exam after workup Lucia Colin DO Medical Decision Making: Problems: Moderate: New problem with uncertain prognosis Risk: Moderate: Moderate risk from testing/treatment Medical Decision Making Level: 4 - Moderate [facility] documented in this encounter [employer] Work Phone: Summary Purpose Family History No Family History Records FoundNo Family History Records FoundNo Family History Records FoundNo Family History Records FoundNo Family History Records Found Advance Directives No Advanced Directives Records FoundDocuments on File Type Date 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 ACP-Advance Directive ACP-Power of Research Instrumentation Technician Latest Code Status on File Code Status Date Activated Date Inactivated Comments Full Code 02/24/2018 11:41 PM 02/26/2018 1:48 PM Additional Source Comments INFORMATION SOURCE (unrecogn ized section and content) DATE CREATED AUTHOR AUTHOR'S ORGANIZ ATION [facility] DATE CREATED AUTHOR AUTHOR'S ORGANIZ ATION 02/09/2021 [facility] DATE CREATED AUTHOR AUTHOR'S ORGANIZ ATION 07/12/2021 [facility] DATE CREATED AUTHOR AUTHOR'S ORGANIZ ATION 05/23/2023 [facility] Reason for Visit (unrecogniz ed section and content) Specialty Diagnoses / Procedures Referred By Elle cee Referred To Contact Radiology Diagnoses Chronic nausea Hematochezia Generalized abdominal pain Procedures CT abdomen pelvis w contrast Sunil Reyna MD [address] [place] [id number] Referral ID Status Reason Start Date Expiration Date V isits Requested Visits Authorized [id number] Authorized 06/11/2022 12/08/2022 1 1 Reason Onset Date Comments Other 05/21/2023 Care Teams (unrecognized sec tion and content) Union Organizer Relationship Specialty Start Date End Date Sunil Reyna MD [address] [place] [id number] PCP - General 12/20/14 Union Organizer Relationship Specialty Start Date End Date Sunil Reyna MD [address] [place] [address] [id number] PCP - General 12/20/14 Union Organizer Relationship Specialty Start Date End Date Sunil Reyna MD [address] [place] [address], [facility] [place] [address] PCP - General 12/20/14 FOR RECORDS PERTAINING TO PATIENTS WHO ARE OR HAVE BEEN ENROLLED IN A CHEMICAL DEPENDENCY/SUBSTANCEABUSE PROGRAM, SOME INFORMATION MAY BE OMITTED. This clinical summary was aggregated from multiple sources. Caution should be exercised in using it in the provision of clinical care. This summary normalizes information from multiple sources, and as a consequence, information in this document may materially change the coding, format and clinical context of patient data. In addition, data may be omitted in some cases. CLINICAL DECISIONS SHOULD BE BASED ON THE PRIMARY CLINICAL RECORDS. [facility]. provides no warranty or guarantee of the accuracy or completeness of information in this document.
== END | disposition home or self-care (01) ==
PROVIDERS: PCP Family Medicine; Referring Provider Registered Nurse; Visit Provider Registered Nurse
DX: Z34.90 Encounter for supervision of normal pregnancy, unspecified, unspecified trimester (principal)
CPT/HCPCS: 36415; 85025; 86703; 86762; 86780; 86803; 86850; 86900; 86901; 87340

== ENCOUNTER → 2023-09-08 | Outpatient (CLI) | payer OTHER, SELFPAY ==
[2023-09-08 12:45] LABS: Absolute Lymphocyte Count 1.84 X10^3/uL (0.83-4.51); Absolute Neutrophil Count 7.8 X10^3/uL (2.0-7.7); Basophil# 0.06 X10^3/uL; Basophil% 0.6 % (0-1); Eosinophil# 0.16 X10^3/uL; Eosinophils% 1.5 % (0-5); Hematocrit 34.4 % (37-47); Hemoglobin 11.6 g/dL (12.0-15.0); Lymphocyte # 1.84 X10^3/ul (0.83-4.51); Lymphocyte % 17.4 % (19-41); Mean Corp Hgb Conc 33.7 g/dL (32-36); Mean Corpuscular Volume 88.9 fL (81-99); Mean Platelet Vol. 10.5 fl (6.2-12.0); Monocyte# 0.68 X10^3/uL; Monocyte% 6.4 % (0-10); NRBC Flagged by Analyzer 0 % (0-5); Neutrophil # 7.77 X10^3/uL (2.7-7.7); Neutrophil % 73.6 % (47-70); Platelet Count 283 K/mm3 (150-450); RBC Distribution Width CV 12.9 % (11.6-14.6); RBC Distribution Width SD 41.7 fl (35.1-43.9); Red Blood Count 3.87 M/mm3 (4.2-5.4); White Blood Count 10.6 K/mm3 (4.4-11.0)
[2023-09-08 13:16] LABS: Glucose Challenge Gest 1H 50g 164 mg/dL (70-140)
[2023-09-08 13:41] LABS: HIV - WCH Non-Reactive (Nonreactive); Syphilis Antibodies Non-reactive
== END | disposition home or self-care (01) ==
LOC: LAB 11:54
PROVIDERS: PCP Family Medicine; Referring Provider Advanced Practice Midwife; Visit Provider Advanced Practice Midwife
DX: Z34.90 Encounter for supervision of normal pregnancy, unspecified, unspecified trimester (principal)
CPT/HCPCS: 36415; 82950; 85025; 86703; 86780; 86850; 86900; 86901

== ENCOUNTER → 2023-09-15 | Outpatient (CLI) | payer OTHER, SELFPAY ==
[2023-09-15 07:55] LABS: Glucose GTT-Gestation. Fasting 92 mg/dL (<105)
[2023-09-15 08:58] LABS: Glucose GTT-Gestational 1 Hr 134 mg/dL (<190)
[2023-09-15 10:07] LABS: Glucose GTT-Gestational 2 Hr 136 mg/dL (<165)
[2023-09-15 10:47] LABS: Glucose GTT-Gestational 3 Hr 121 L (<145)
== END | disposition home or self-care (01) ==
PROVIDERS: PCP Family Medicine; Referring Provider Advanced Practice Midwife; Visit Provider Advanced Practice Midwife
DX: O99.810 Abnormal glucose complicating pregnancy (principal); Z3A.00 Weeks of gestation of pregnancy not specified
CPT/HCPCS: 36415; 82951; 82952

== ENCOUNTER → 2023-09-29 | Outpatient (CLI) | payer OTHER, SELFPAY ==
--- NOTE | 2023-09-29 14:20 | US_ITS ---
STUDY: SECOND AND THIRD TRIMESTER OBSTETRICAL ULTRASOUND REASON FOR EXAM: Female, 23 years old placenta location LMP: March 13, 2023. TECHNIQUE: Transabdominal and Transvaginal TECHNICAL QUALITY: Adequate. PRIOR ULTRASOUND: None. FINDINGS: There is a single intrauterine fetus. The fetus is in a cephalic presentation. There is demonstrated cardiac activity with a heart rate of 130 bpm. There is a normal amniotic fluid volume. The largest amniotic fluid pocket measures 5.8 cm. The amniotic fluid index (LEANNA) is 15.5 cm. The placenta is anterior posterior right lateral not low-lying There are Grade 1 placental changes. The cervix measures 4.7 cm in length. The adnexal regions are not visualized. BIOMETRY: Age by LMP: 28 weeks, 4 days. ANATOLIY by LMP: December 18, 2023. US/OB Limited (No Biometrics) IMPRESSION: The placenta lies along the anterior posterior aspect of the right lateral wall. The placenta is not low-lying. Electronically Signed: Joseph Scott MD at 15:26 EDT ,
== END | disposition home or self-care (01) ==
LOC: US 14:19
PROVIDERS: PCP Family Medicine; Referring Provider Registered Nurse; Visit Provider Registered Nurse
DX: O44.00 Complete placenta previa NOS or without hemorrhage, unspecified trimester (principal); Z3A.00 Weeks of gestation of pregnancy not specified
CPT/HCPCS: 76815

== ENCOUNTER → 2023-10-29 | Outpatient (CLI) | payer OTHER, SELFPAY ==
[2023-10-29 12:04] LABS: Absolute Neutrophil Count 9.5 X10^3/uL (2.0-7.7); Basophil# 0.05 X10^3/uL; Basophil% 0.4 % (0-1); Eosinophil# 0.13 X10^3/uL; Hematocrit 37.1 % (37-47); Hemoglobin 11.9 g/dL (12.0-15.0); Lymphocyte % 16.9 % (19-41); Mean Corp Hgb Conc 32.1 g/dL (32-36); Mean Corpuscular Hgb 28.5 pg (27.0-32.0); Mean Platelet Vol. 10.6 fl (6.2-12.0); Monocyte# 1.06 X10^3/uL; Monocyte% 8.2 % (0-10); NRBC Flagged by Analyzer 0 % (0-5); Neutrophil # 9.49 X10^3/uL (2.7-7.7); Platelet Count 257 K/mm3 (150-450); RBC Distribution Width CV 13.4 % (11.6-14.6); RBC Distribution Width SD 43.3 fl (35.1-43.9); Red Blood Count 4.17 M/mm3 (4.2-5.4)
[2023-10-29 12:39] LABS: ALB/GLOB Ratio 0.7 RATIO (0.9-2.4); AST(SGOT) 29 U/L (15-37); Alanine Aminotransfer ALT/SGPT 34 U/L (13-56); Albumin, Serum 2.9 g/dL (3.2-5.0); Alkaline Phosphatase 117 U/L (45-117); Anion Gap 6 (5-15); BUN 6 mg/dL (7-18); BUN/Creat Ratio 9.2 RATIO (10-20); Calcium,Total 8.9 mg/dL (8.5-10.1); Chloride 107 mmol/L (98-107); Creatinine, Serum 0.66 mg/dL (0.55-1.02); EST Glomerular Filtration Rate 118 mL/min (>60); Est Glom Filt Rate - Afr Amer 143 mL/min (>60); Globulin 4.1 g/dL (2.2-4.2); Glucose 83 mg/dL (74-106); Potassium 4.1 mmol/L (3.5-5.1); Sodium Level 136 mmol/L (136-145)
== END | disposition home or self-care (01) ==
PROVIDERS: PCP Family Medicine; Referring Provider Obstetrics & Gynecology; Visit Provider Obstetrics & Gynecology
DX: L29.9 Pruritus, unspecified (principal)
CPT/HCPCS: 80053; 85025

== ENCOUNTER 2023-11-21 09:15 | Outpatient (CLI) | payer OTHER, SELFPAY ==
[2023-11-21 09:30] VITALS: PULSE 92; O2SAT 97
[2023-11-21 09:31] VITALS: BP 113/74; PULSE 80; RESP 16; TEMP 37.1
[2023-11-21 09:35] VITALS: BMI 26.2
--- NOTE | 2023-11-21 10:15 | OB.TRI.HP_ITS ---
HPI - General General Date of Service: 11/21/23 Chief Complaint: decreased movement. HPI Narrative RAUL DEWITT, is a 23 F who presents with decreased movement at home, movements feel more like flutters instead of actual kicks. denies ctx/lof/vb. Maternal Data Information ANATOLIY Calculator Estimated Delivery Date Method Current WG Current Estimate 12/18/23 LMP (Certain) 36w 1d PFSH PFSH Medical History Psoriasis Home Medications ?Medication ?Instructions ?Recorded ?Last Taken ?Type magnesium glycinate 100 mg (as 50 mg PO DAILY 05/12/23 Unknown History glycinate) tablet multivit-min no.71-iron fum 28 cap PO DAILY 05/12/23 11/20/23 21:00 History mg-folate no.1 1 mg-dha 300 mg 1 cap capsule (PNV-Hurley) Allergy/AdvReac Type Severity Reaction Status Date / Time No Known Allergies Allergy Verified 11/21/23 09:34 Surgical History [place] teeth extracted Social History adopted: No household members: spouse current occupational status: employed 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 [employer] current occupational exposures/hazards: No pets and animals: No history of recent travel: No sexually active: Yes Smoking Status: Never smoker alcohol intake: never substance use type: does not use well-balanced diet: daily or most days caffeine: No eating out: rarely or never during the past year weight has: remained stable what type of physical activity do you participate in: none arturo/buddhism: Tenriism seatbelt use: always do you feel safe at home: Yes additional social history: [employer] History 1 Elective abortions Hx Para 0 Spontaneous abortions Hx # Term Pregnancies Ectopic pregnancies Hx # Pregnancies Multiple births # of living children Visit Details Expected Delivery Route/Plan Labor Preferences- CB/BF classes: [] labor support person: [] labor intervention preferences: [] pain management options preferred: [] cut cord/dad catch: [] : [] PP control planned: [] discussed possible routes of delivery and associated risks: [] special requests: [] Plans Covid status: [] Flu vaccine: declined Tdap vaccine: [] Rhogam: [] LARC form signed: [] Problem list reviewed and updated with the most current plan of care details and appropriate orders placed. Relevant counseling for the gestational age provided. Continue routine care and follow up unless otherwise noted in visit notes/problem list details OB Flowsheet Initial Weight: 136 lb Date -?-?-?-?-?-?-?-?-?-?-?-?- EGA Weight BP Urine Prot -?-?-?-?-?-?-?-?-?-?-?-?- Glucose FHR FuHt Pres Dilation -?-?-?-?-?-?-?-?-?-?-?-?- Effaced St Visit Note 05/13/23 -?-?-?-?-?-?-?-?-?-?-?-?- 8w 5d 136 lb 6 oz (+6 oz) 108/64 -?-?-?-?-?-?-?-?-?-?-?-?- 180 -?-?-?-?-?-?-?-?-?-?-?-?- 05/20/23 -?-?-?-?-?-?-?-?-?-?-?-?- 9w 5d 136 lb (+0 oz) 102/69 Negative -?-?-?-?-?-?-?-?-?-?-?-?- Negative -?-?-?-?-?-?-?-?-?-?-?-?- nurse visit only . urine dip and culture sent. culture pending, treat based on culture as dip inconclusive. 06/11/23 -?-?-?-?-?-?-?-?-?-?-?-?- 12w 6d 135 lb (-16 oz) 105/68 Negative -?-?-?-?-?-?-?-?-?-?-?-?- Negative 150 -?-?-?-?-?-?-?-?-?-?-?-?- SM- no vb crmapi ng 07/07/23 -?-?-?-?-?-?-?-?-?-?-?-?- 16w 4d 140 lb 6 oz (+4 lb 6 oz) 102/64 Negative -?-?-?-?-?-?-?-?-?-?-?-?- Negative 144 -?-?-?-?-?-?-?-?-?-?-?-?- MH-No VB. Nausea improving. Will do labs 2/7. 08/03/23 -?-?-?-?-?-?-?-?-?-?-?-?- 20w 3d 147 lb 6 oz (+11 lb 6 oz) 102/68 Negative -?-?-?-?-?-?-?-?-?-?-?-?- Negative 145 -?-?-?-?-?-?-?-?-?-?-?-?- LC- nob labs nor mal. repeat us at [facility] radiology for placenta location. no vb/cramping. occ movement. 09/01/23 -?-?-?-?-?-?-?-?--?-?-?-?- 24w 4d 152 lb 6 oz (+16 lb 6 oz) 118/78 Negative -?-?-?-?-?-?-?-?-?-?-?-?- Negative 135 24 -?-?-?-?-?-?-?-?-?-?-?-?- kw- no vb/crampi ng. good fm. 28 week labs discussed. has repeat US scheduled 09/30/23 -?-?-?-?-?-?-?-?-?-?-?-?- 28w 5d 158 lb 8 oz (+22 lb 8 oz) 110/69 Negative -?-?-?-?-?-?-?-?-?-?-?-?- Negative 140 28 -?-?-?-?-?-?-?-?-?-?-?-?- JV- no lof, vagi nal bleeding, or dec fm. passed her 3 hr and placenta is no longer a previa. 10/13/23 -?-?-?-?-?-?-?-?-?-?-?-?- 30w 4d 158 lb 6 oz (+22 lb 6 oz) 111/73 Negative -?-?-?-?-?-?-?-?-?-?--?-?- Negative 130 30 -?-?-?-?-?-?-?-?-?-?-?-?- KW- no vb/lof/ct x. good fm. [facility] today. no concerns 10/29/23 -?-?-?-?-?-?-?-?-?-?-?-?- 32w 6d 157 lb (+21 lb) 109/70 Negative -?-?-?-?-?-?-?-?-?-?-?-?- Negative 140 33 -?-?-?-?-?-?-?-?-?-?-?-?- Sm- no vb lof go od fm no regular ctx 11/16/23 -?-?-?-?-?-?-?-?-?-?-?-?- 35w 3d 165 lb (+29 lb) 105/69 Negative -?-?-?-?-?-?-?-?-?-?-?-?- Negative 135 35 -?-?-?-?-?-?-?-?-?-?-?-?- KW- no vb/lof/re g ctx. good fm. NST FHR Rate Baby A Baseline: 125 Variability:: Moderate Accelerations:: 15 x 15 Decelerations:: None NST Reactive:: Yes FHR Category:: Category I Uterine Activity:: irreg. Assessment & Plan (1) Decreased movement: COMMENT: reassuring NST on 11/20 PLAN: Patient presents for triage evaluation secondary to decreased movement, still moving but feel like flutters. FHT: Moderate variability reactive no decelerations category I tracing Mcneil: irreg Contractions Assessment and plan: Reactive NST, reassuring maternal and status patient discharged to home to follow-up in office. See problem list details for additional plan information. Charges/Coding Procedures Urinary/Genital [id number]: [id number] non-stress test Interp
--- NOTE | 2023-11-21 10:15 | OB.TRI.NOTE ---
HPI - General General Date of Service: 11/21/23 Chief Complaint: decreased movement. HPI Narrative RAUL DEWITT, is a 23 F who presents with decreased movement at home, movements feel more like flutters instead of actual kicks. denies ctx/lof/vb. Maternal Data Information ANATOLIY Calculator Estimated Delivery Date Method Current WG Current Estimate 12/18/23 LMP (Certain) 36w 1d PFSH PFSH Medical History Psoriasis Home Medications ?Medication ?Instructions ?Recorded ?Last Taken ?Type magnesium glycinate 100 mg (as 50 mg PO DAILY 05/12/23 Unknown History glycinate) tablet multivit-min no.71-iron fum 28 cap PO DAILY 05/12/23 11/20/23 21:00 History mg-folate no.1 1 mg-dha 300 mg 1 cap capsule (PNV-[place]) Allergy/AdvReac Type Severity Reaction Status Date / Time No Known Allergies Allergy Verified 11/21/23 09:34 Surgical History [place] teeth extracted Social History adopted: No household members: spouse current occupational status: employed 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 occupational 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/hazards: No pets and animals: No history of recent travel: No sexually active: Yes Smoking Status: Never smoker alcohol intake: never substance use type: does not use well-balanced diet: daily or most days caffeine: No eating out: rarely or never during the past year weight has: remained stable what type of physical activity do you participate in: none arturo/yazidi: Episcopalian seatbelt use: always do you feel safe at home: Yes additional social history: [employer] History 1 Elective abortions Hx Para 0 Spontaneous abortions Hx # Term Pregnancies Ectopic pregnancies Hx # Pregnancies Multiple births # of living children Visit Details Expected Delivery Route/Plan Labor Preferences- CB/BF classes: [] labor support person: [] labor intervention preferences: [] pain management options preferred: [] cut cord/dad catch: [] : [] PP control planned: [] discussed possible routes of delivery and associated risks: [] special requests: [] Plans Covid status: [] Flu vaccine: declined Tdap vaccine: [] Rhogam: [] LARC form signed: [] Problem list reviewed and updated with the most current plan of care details and appropriate orders placed. Relevant counseling for the gestational age provided. Continue routine care and follow up unless otherwise noted in visit notes/problem list details OB Flowsheet Initial Weight: 136 lb Date <del>?</del> EGA Weight BP Urine Prot <del>?</del> Glucose FHR FuHt Pres Dilation <del>?</del> Effaced St Visit Note 05/13/23 <del>?</del> 8w 5d 136 lb 6 oz (+6 oz) 108/64 <del>?</del> 180 <del>?</del> 05/20/23 <del>?</del> 9w 5d 136 lb (+0 oz) 102/69 Negative <del>?</del> Negative <del>?</del> nurse visit only. urine dip and culture sent. culture pending, treat based on culture as dip inconclusive. 06/11/23 <del>?</del> 12w 6d 135 lb (-16 oz) 105/68 Negative <del>?</del> Negative 150 <del>?</del> SM- no vb crmaping 07/07/23 <del>?</del> 16w 4d 140 lb 6 oz (+4 lb 6 oz) 102/64 Negative <del>?</del> Negative 144 <del>?</del> MH-No VB. Nausea improving. Will do labs 07/08. 08/03/23 <del>?</del> 20w 3d 147 lb 6 oz (+11 lb 6 oz) 102/68 Negative <del>?</del> Negative 145 <del>?</del> LC- nob labs normal. repeat us at [facility] radiology for placenta location. no vb/cramping. occ movement. 09/01/23 <del>?</del> 24w 4d 152 lb 6 oz (+16 lb 6 oz) 118/78 Negative <del>?</del> Negative 135 24 <del>?</del> kw- no vb/cramping. good fm. 28 week labs discussed. has repeat US scheduled 09/30/23 <del>?</del> 28w 5d 158 lb 8 oz (+22 lb 8 oz) 110/69 Negative <del>?</del> Negative 140 28 <del>?</del> JV- no lof, vaginal bleeding, or dec fm. passed her 3 hr and placenta is no longer a previa. 10/13/23 <del>?</del> 30w 4d 158 lb 6 oz (+22 lb 6 oz) 111/73 Negative <del>?</del> Negative 130 30 <del>?</del> KW- no vb/lof/ctx. good fm. LARC today. no concerns 10/29/23 <del>?</del> 32w 6d 157 lb (+21 lb) 109/70 Negative <del>?</del> Negative 140 33 <del>?</del> Sm- no vb lof good fm no regular ctx 11/16/23 <del>?</del> 35w 3d 165 lb (+29 lb) 105/69 Negative <del>?</del> Negative 135 35 <del>?</del> KW- no vb/lof/reg ctx. good fm. NST FHR Rate Baby A Baseline: 125 Variability:: Moderate Accelerations:: 15 x 15 Decelerations:: None NST Reactive:: Yes FHR Category:: Category I Uterine Activity:: irreg. Assessment & Plan (1) Decreased movement: COMMENT: reassuring NST on 11/20 PLAN: Patient presents for triage evaluation secondary to decreased movement, still moving but feel like flutters. FHT: Moderate variability reactive no decelerations category I tracing [place]: irreg Contractions Assessment and plan: Reactive NST, reassuring maternal and status patient discharged to home to follow-up in office. See problem list details for additional plan information. Charges/Coding Procedures Urinary/Genital 52xxx-59xxx: 64397-99 non-stress test Interp
== END 2023-11-21 10:19 | disposition home or self-care (01) ==
LOC: WPOUT 09:22 → WP 09:22
PROVIDERS: PCP Family Medicine; Visit Provider Registered Nurse
DX: O36.8190 Decreased fetal movements, unspecified trimester, not applicable or unspecified (principal); Z3A.00 Weeks of gestation of pregnancy not specified
CPT/HCPCS: 59025; 59050; 99221; G0378

== ENCOUNTER → 2023-11-26 | Outpatient (CLI) | payer OTHER, SELFPAY | END | disposition home or self-care (01) | LOC: LABSPEC 11:11 | PROVIDERS: PCP Family Medicine; Referring Provider Obstetrics & Gynecology; Visit Provider Obstetrics & Gynecology | DX: O09.92 Supervision of high risk pregnancy, unspecified, second trimester (principal); Z3A.00 Weeks of gestation of pregnancy not specified | CPT/HCPCS: 87081 ==

== ENCOUNTER 2023-12-02 09:55 | Outpatient (CLI) | payer OTHER, SELFPAY ==
[2023-12-02 10:20] VITALS: BP 110/64; PULSE 76
[2023-12-02 10:22] VITALS: TEMP 36.2
--- NOTE | 2023-12-02 10:29 | US_ITS ---
STUDY: SECOND AND THIRD TRIMESTER OBSTETRICAL ULTRASOUND - LIMITED REASON FOR EXAM: Female, 23 years old decreased fm LMP: 03/13/2023 PRIOR ULTRASOUND: Prior study dated: 09/29/2023 TECHNIQUE: Transabdominal TECHNICAL QUALITY: Adequate. FINDINGS: There is a single intrauterine fetus. The fetus is in a cephalic presentation. There is demonstrated cardiac activity with a heart rate of 136 bpm. There is a normal amniotic fluid volume. The largest amniotic fluid pocket measures 15.9 cm. The amniotic fluid index (LEANNA) is 4.8 cm. The placenta is anterior, right lateral and posterior. There are Grade 2 placental changes. The cervix is suboptimally visualized. BIOMETRY: BPD: 9.1 cm: 37 weeks, 0 days HC: 34.3 cm: 39 weeks, 4 days AC: 33.9 cm: 37 weeks, 6 days FL: 7.2 cm: 37 weeks, 0 days Age by LMP: 37 weeks, 5 days. ANATOLIY by LMP: 12/18/2023. age by current US: 38 weeks, 0 days. ANATOLIY by current US: 12/16/2023. Estimated weight: 3264 grams, +/- 490 grams, 58 percentile. US/OB Limited With Biometrics IMPRESSION: Live intrauterine fetus in cephalic presentation with an estimated gestational age of 38 weeks. The ANATOLIY is 12/16/2023. Electronically Signed: Darrian Caro MD at 14:34 EDT ,
--- NOTE | 2023-12-02 10:29 | US_ITS ---
INDICATION: decreased FM EXAMINATION: Ultrasound US Biophysical Profile W/O Nonst TECHNIQUE: Transabdominal pelvic ultrasound was performed. COMPARISON: OB ultrasound of 09/29/2023. LMP: Unknown. Beta-hCG: Unknown. Provided EGA: None. FINDINGS: INTRAUTERINE GESTATION(s): Single. HEART MOTION is 140 bpm. AMNIOTIC FLUID INDEX (LEANNA): 15.1, MVP 4.5 cm BIOPHYSICAL PROFILE (BPP): 01/06 -- Breathin/2. -- Movement: 2/2. -- Tone: 2/2. --LEANNA: 2/2. PRESENTATION: Cephalic PLACENTA: Anterior, right lateral and posterior. There is no placenta previa or abruption. CERVIX: The cervix is suboptimally visualized. MATERNAL OVARIES: No adnexal masses. FREE FLUID: None. US/Biophysical Prof W/O Non Stres IMPRESSION: Normal biophysical profile with score of 8 out of 8. Electronically Signed: Darrian Caro MD at 13:09 EDT ,
[2023-12-02 10:41] VITALS: TEMP 36.6
[2023-12-02 10:45] VITALS: BMI 26.4
--- NOTE | 2023-12-02 15:10 | OB.TRI.PN_ITS ---
Progress Notes Date of Service: 12/02/23 Progress Note: Patient presents for triage evaluation secondary to decreased movement FHT: 130 Moderate variability reactive no decelerations category I tracing [place]: irregular Contractions Assessment and plan: BPP 8/8, Growth normal and LEANNA 15, Reactive NST, reassuring maternal and status patient discharged to home to follow-up in the office. See problem list details for additional plan information. Charges/Coding Multi Select Codes Urinary/Genital Urinary/Genital CPT Codes: 32088-00 non-stress test Interp Assessment & Plan (1) Decreased movement: COMMENT: reactive nst, BPP 8/8 and growth US-normal LEANNA (2) Refuses tetanus, diphtheria, and acellular pertussis (Tdap) vaccination: (3) Abnormal glucose affecting : COMMENT: passed 3 hour (4) Depression: QUALIFIERS: Depression Type: unspecified Qualified Code(s): F32.A - Depression, unspecified COMMENT: stable. (5) Supervision of high-risk : QUALIFIERS: Trimester: second trimester Qualified Code(s): O09.92 - Supervision of high risk , unspecified, second trimester COMMENT: PRR, , ANATOLIY 12/18/23, boy Geronimo Callum (6) : QUALIFIERS: Weeks of gestation: 37 weeks Qualified Code(s): Z3A.37 - 37 weeks gestation of COMMENT: Neg GBS. declines genetic and ntd screen. desires carrier screening. (7) Susceptible to varicella (non-immune), currently :
== END 2023-12-02 15:22 | disposition home or self-care (01) ==
LOC: WPOUT 10:03 → WP 10:12
PROVIDERS: PCP Family Medicine; Referring Provider Advanced Practice Midwife; Visit Provider Advanced Practice Midwife
DX: O36.8130 Decreased fetal movements, third trimester, not applicable or unspecified (principal); Z3A.37 37 weeks gestation of pregnancy; O99.343 Other mental disorders complicating pregnancy, third trimester; F32.A Depression, unspecified
CPT/HCPCS: 59025; 59050; 76816; 76819; 99221; G0378

== ENCOUNTER → 2023-12-10 | Outpatient (CLI) | payer OTHER, SELFPAY ==
[2023-12-10 16:30] LABS: ROM Internal Control Test YES-OK TO RESULT pt. (Internal QC); ROM Patient Test Negative (Negative); Record Kit Lot#, ROM+ K1866
== END | disposition home or self-care (01) ==
LOC: LABSPEC 15:51
PROVIDERS: PCP Family Medicine; Referring Provider Obstetrics & Gynecology; Visit Provider Obstetrics & Gynecology
DX: N89.8 Other specified noninflammatory disorders of vagina (principal)
CPT/HCPCS: 84112

== ENCOUNTER 2023-12-13 15:45 | Outpatient (CLI) | payer OTHER, SELFPAY ==
[2023-12-13 16:07] VITALS: BMI 26.8
[2023-12-13 16:19] VITALS: BP 112/68; PULSE 78; RESP 16; TEMP 37.2
[2023-12-13 16:49] LABS: ROM Internal Control Test YES-OK TO RESULT pt. (Internal QC); ROM Patient Test Negative (Negative); Record Kit Lot#, ROM+ K1866
--- NOTE | 2023-12-13 17:15 | OB.TRI.PN_ITS ---
Progress Notes Date of Service: 12/13/23 Progress Note: Patient presents for triage evaluation secondary to vaginal discharge FHT: 130 Moderate variability reactive no decelerations category I tracing [place]: occasional Contractions Assessment and plan: negative ROM, Reactive NST, reassuring maternal and status patient discharged to home to follow-up in office at next appt. See problem list details for additional plan information. Laboratory Studies: Laboratory Tests 12/13/23 Range/Units 16:15 Vag Amniotic Fld Detect Negative (Negative) Charges/Coding Multi Select Codes Urinary/Genital Urinary/Genital CPT Codes: 38043-03 non-stress test Interp Assessment & Plan (1) Vaginal discharge during : COMMENT: ROM negative, D/C home (2) Supervision of high-risk : QUALIFIERS: Trimester: second trimester Qualified Code(s): O09.92 - Supervision of high risk , unspecified, second trimester COMMENT: PRR, , ANATOLIY 12/18/23, boy Geronimo Callum (3) : QUALIFIERS: Weeks of gestation: 37 weeks Qualified Code(s): Z3A.37 - 37 weeks gestation of COMMENT: Neg GBS. declines genetic and ntd screen. desires carrier screening.
[2023-12-13 19:38] VITALS: BP 113/60; PULSE 68
== END 2023-12-13 17:20 | disposition home or self-care (01) ==
LOC: WPOUT 15:51 → WP 15:52
PROVIDERS: PCP Family Medicine; Referring Provider Advanced Practice Midwife; Visit Provider Advanced Practice Midwife
DX: O99.891 Other specified diseases and conditions complicating pregnancy (principal); N89.8 Other specified noninflammatory disorders of vagina; Z3A.37 37 weeks gestation of pregnancy
CPT/HCPCS: 59025; 59050; 84112; 99221; G0378

== ENCOUNTER 2023-12-20 10:45 | Outpatient (CLI) | payer OTHER, SELFPAY ==
[2023-12-20 11:07] VITALS: BP 118/77; PULSE 77; PULSE 78; O2SAT 97
[2023-12-20 11:08] VITALS: RESP 16; TEMP 37.4
[2023-12-20 11:19] VITALS: BMI 27.5
--- NOTE | 2023-12-20 22:00 | OB.TRI.NOTE ---
HPI - General HPI Narrative RAUL DEWITT, is a 23 y/o @ 40 weeks 2 days who presents to L&D with contractions. She was checked and found to be unchanged from the office. contractions were found to be 9 minutes apart. Maternal Data Information ANATOLIY Calculator Estimated Delivery Date Method Current WG Current Estimate 12/18/23 LMP (Certain) 40w 4d PFSH PFSH Medical History Psoriasis Home Medications ?Medication ?Instructions ?Recorded ?Last Taken ?Type magnesium glycinate 100 mg (as 50 mg PO DAILY 05/12/23 12/19/23 History glycinate) tablet multivit-min no.71-iron fum 28 1 cap PO DAILY 05/12/23 12/19/23 History mg-folate no.1 1 mg-dha 300 mg capsule (PNV-[place]) Allergy/AdvReac Type Severity Reaction Status Date / Time No Known Allergies Allergy Verified 12/20/23 11:18 Surgical History [place] teeth extracted Social History adopted: No household members: spouse current occupational status: employed 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: No pets and animals: No history of recent travel: No sexually active: Yes Smoking Status: Never smoker alcohol intake: never substance use type: does not use well-balanced diet: daily or most days caffeine: No eating out: rarely or never during the past year weight has: remained stable what type of physical activity do you participate in: none arturo/christian: Methodist seatbelt use: always do you feel safe at home: Yes additional social history: [employer] History 1 Elective abortions Hx Para 0 Spontaneous abortions Hx # Term Pregnancies Ectopic pregnancies Hx # Pregnancies Multiple births # of living children Visit Details Expected Delivery Route/Plan Labor Preferences- CB/BF classes: [] labor support person: [] labor intervention preferences: [] pain management options preferred: [] cut cord/dad catch: [] : [] PP control planned: [] discussed possible routes of delivery and associated risks: [] special requests: [] Plans Covid status: [] Flu vaccine: declined Tdap vaccine: declined Rhogam: na LARC form signed: declined movement and labor precautions reviewed. Problem list reviewed and updated with the most current plan of care details and appropriate orders placed. Relevant counseling for the gestational age provided. Continue routine care and follow up unless otherwise noted in visit notes/problem list details OB Flowsheet Initial Weight: 136 lb Date <del>?</del> EGA Weight BP Urine Prot <del>?</del> Glucose FHR FuHt Pres Dilation <del>?</del> Effaced St Visit Note 05/13/23 <del>?</del> 8w 5d 136 lb 6 oz (+6 oz) 108/64 <del>?</del> 180 <del>?</del> 05/20/23 <del>?</del> 9w 5d 136 lb (+0 oz) 102/69 Negative <del>?</del> Negative <del>?</del> nurse visit only. urine dip and culture sent. culture pending, treat based on culture as dip inconclusive. 06/11/23 <del>?</del> 12w 6d 135 lb (-16 oz) 105/68 Negative <del>?</del> Negative 150 <del>?</del> SM- no vb crmaping 07/07/23 <del>?</del> 16w 4d 140 lb 6 oz (+4 lb 6 oz) 102/64 Negative <del>?</del> Negative 144 <del>?</del> MH-No VB. Nausea improving. Will do labs 07/08. 08/03/23 <del>?</del> 20w 3d 147 lb 6 oz (+11 lb 6 oz) 102/68 Negative <del>?</del> Negative 145 <del>?</del> LC- nob labs normal. repeat us at [facility] radiology for placenta location. no vb/cramping. occ movement. 09/01/23 <del>?</del> 24w 4d 152 lb 6 oz (+16 lb 6 oz) 118/78 Negative <del>?</del> Negative 135 24 <del>?</del> kw- no vb/cramping. good fm. 28 week labs discussed. has repeat US scheduled 09/30/23 <del>?</del> 28w 5d 158 lb 8 oz (+22 lb 8 oz) 110/69 Negative <del>?</del> Negative 140 28 <del>?</del> JV- no lof, vaginal bleeding, or dec fm. passed her 3 hr and placenta is no longer a previa. 10/13/23 <del>?</del> 30w 4d 158 lb 6 oz (+22 lb 6 oz) 111/73 Negative <del>?</del> Negative 130 30 <del>?</del> KW- no vb/lof/ctx. good fm. LARC today. no concerns 10/29/23 <del>?</del> 32w 6d 157 lb (+21 lb) 109/70 Negative <del>?</del> Negative 140 33 <del>?</del> Sm- no vb lof good fm no regular ctx 11/16/23 <del>?</del> 35w 3d 165 lb (+29 lb) 105/69 Negative <del>?</del> Negative 135 35 <del>?</del> KW- no vb/lof/reg ctx. good fm. 11/26/23 <del>?</del> 36w 6d 165 lb 2 oz (+29 lb 2 oz) 113/75 Negative <del>?</del> Negative 140 37 Cephalic 0 <del>?</del> JV- no lof, vag bleeding or dec fm. gbs today. 12/02/23 <del>?</del> 37w 5d 165 lb (+29 lb) 116/70 Negative <del>?</del> Negative 140 38 Cephalic 0.5 <del>?</del> SM- no vb lof good fm no regular ctx 12/10/23 <del>?</del> 38w 6d 168 lb (+32 lb) 115/78 Negative <del>?</del> Negative 126 38 Cephalic <del>?</del> JV- pt is leaking some scant fluid. rom plus ordered. She declines bimanual exam of cervix. no vaginal bleeding or dec fm. 12/18/23 <del>?</del> 40w 0d 167 lb 2 oz (+31 lb 2 oz) 117/77 Negative <del>?</del> Negative 145 36 Cephalic 1 <del>?</del> 30 -2 JV- LAENNA today is 10.3, no lof, vaginal bleeding, or dec fm IOL at 41 weeks planned. ROS Constitutional Constitutional: Reports systems reviewed and no addt'l complaints, except as documented Gastrointestinal Gastrointestinal: Denies bloating, constipation, cramping, diarrhea, nausea or vomiting Genitourinary Genitourinary: Reports other Details: Denies vaginal odor, vaginal bleeding, or vaginal discharge ; Denies difficulty urinating or flank pain NST FHR Rate Baby A Baseline: 140 Variability:: Moderate Accelerations:: 15 x 15 Decelerations:: None NST Reactive:: Yes FHR Category:: Category I Assessment & Plan (1) False labor after 37 completed weeks of gestation: (2) Vaginal discharge during : COMMENT: ROM negative, D/C home (3) Decreased movement: COMMENT: reactive nst, BPP 8/8 and growth US-normal LEANNA (4) Refuses tetanus, diphtheria, and acellular pertussis (Tdap) vaccination: (5) Abnormal glucose affecting : COMMENT: passed 3 hour (6) Depression: QUALIFIERS: Depression Type: unspecified Qualified Code(s): F32.A - Depression, unspecified COMMENT: stable. (7) Supervision of high-risk : QUALIFIERS: Trimester: second trimester Qualified Code(s): O09.92 - Supervision of high risk , unspecified, second trimester COMMENT: PRR, , ANATOLIY 12/18/23, boy Geronimo Callum (8) : QUALIFIERS: Weeks of gestation: 37 weeks Qualified Code(s): Z3A.37 - 37 weeks gestation of COMMENT: Neg GBS. declines genetic and ntd screen. desires carrier screening. (9) Susceptible to varicella (non-immune), currently : PLAN: Plan false labor- no cervical manager exchange 51 minutes and minimal contractions. IOL is set up for 41 weeks ok to dc to home Charges/Coding Multi Select Codes Urinary/Genital Urinary/Genital CPT Codes: 29291-29 non-stress test Interp
--- NOTE | 2023-12-20 22:00 | OB.TRI.HP_ITS ---
HPI - General HPI Narrative RAUL DEWITT, is a 23 y/o @ 40 weeks 2 days who presents to L&D with contractions. She was checked and found to be unchanged from the office. contractions were found to be 9 minutes apart. Maternal Data Information ANATOLIY Calculator Estimated Delivery Date Method Current WG Current Estimate 12/18/23 LMP (Certain) 40w 4d PFSH PFSH Medical History Psoriasis Home Medications ?Medication ?Instructions ?Recorded ?Last Taken ?Type magnesium glycinate 100 mg (as 50 mg PO DAILY 05/12/23 12/19/23 History glycinate) tablet multivit-min no.71-iron fum 28 1 cap PO DAILY 05/12/23 12/19/23 History mg-folate no.1 1 mg-dha 300 mg capsule (PNV-[place]) Allergy/AdvReac Type Severity Reaction Status Date / Time No Known Allergies Allergy Verified 12/20/23 11:18 Surgical History [place] teeth extracted Social History adopted: No household members: spouse current occupational status: employed 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: No pets and animals: No history of recent travel: No sexually active: Yes Smoking Status: Never smoker alcohol intake: never substance use type: does not use well-balanced diet: daily or most days caffeine: No eating out: rarely or never during the past year weight has: remained stable what type of physical activity do you participate in: none arturo/pentecostalism: Gnosticist seatbelt use: always do you feel safe at home: Yes additional social history: [employer] History 1 Elective abortions Hx Para 0 Spontaneous abortions Hx # Term Pregnancies Ectopic pregnancies Hx # Pregnancies Multiple births # of living children Visit Details Expected Delivery Route/Plan Labor Preferences- CB/BF classes: [] labor support person: [] labor intervention preferences: [] pain management options preferred: [] cut cord/dad catch: [] : [] PP control planned: [] discussed possible routes of delivery and associated risks: [] special requests: [] Plans Covid status: [] Flu vaccine: declined Tdap vaccine: declined Rhogam: na LARC form signed: declined movement and labor precautions reviewed. Problem list reviewed and updated with the most current plan of care details and appropriate orders placed. Relevant counseling for the gestational age provided. Continue routine care and follow up unless otherwise noted in visit not es/problem list details OB Flowsheet Initial Weight: 136 lb Date -?-?-?-?-?-?-?-?-?-?-?-?- EGA Weight BP Urine Prot -?-?-?-?-?-?-?-?-?-?-?-?- Glucose FHR FuHt Pres Dilation -?-?-?-?-?-?-?-?-?-?-?-?- Effaced St Visit Note 05/13/23 -?-?-?-?-?-?-?-?-?-?-?-?- 8w 5d 136 lb 6 oz (+6 oz) 108/64 -?--?-?-?-?-?-?-?-?-?-?-?- 180 -?-?-?-?-?-?-?-?-?-?-?-?- 05/20/23 -?-?-?-?-?-?-?-?-?-?-?-?- 9w 5d 136 lb (+0 oz) 102/69 Negative -?-?-?-?-?-?-?-?-?-?-?-?- Negative -?-?-?-?-?-?-?-?-?-?-?-?- nurse visit only . urine dip and culture sent. culture pending, treat based on culture as dip inconclusive. 06/11/23 -?-?-?-?-?-?-?-?-?-?-?-?- 12w 6d 135 lb (-16 oz) 105/68 Negative -?-?-?-?-?-?-?-?-?-?-?-?- Negative 150 -?-?-?-?-?-?-?-?-?-?-?-?- SM- no vb crmapi ng 07/07/23 -?-?-?-?-?-?-?-?-?-?-?-?- 16w 4d 140 lb 6 oz (+4 lb 6 oz) 102/64 Negative -?-?-?-?-?-?-?-?-?-?-?-?- Negative 144 -?-?-?-?-?-?-?-?-?-?-?-?- MH-No VB. Nausea improving. Will do labs 7. 08/03/23 -?-?-?-?-?-?-?-?-?-?-?-?- 20w 3d 147 lb 6 oz (+11 lb 6 oz) 102/68 Negative -?-?-?-?-?-?-?-?-?-?-?-?- Negative 145 -?-?-?-?--?-?-?-?-?-?-?-?- LC- nob labs nor mal. repeat us at [facility] radiology for placenta location. no vb/cramping. occ movement. 09/01/23 -?-?-?-?-?-?-?-?-?-?-?-?- 24w 4d 152 lb 6 oz (+16 lb 6 oz) 118/78 Negative -?-?-?-?-?-?-?-?-?-?-?-?- Negative 135 24 -?-?-?-?-?-?-?-?-?-?-?-?- kw- no vb/crampi ng. good fm. 28 week labs discussed. has repeat US scheduled 09/30/23 -?-?-?-?-?-?-?-?-?-?-?-?- 28w 5d 158 lb 8 oz (+22 lb 8 oz) 110/69 Negative -?-?-?-?-?-?-?-?-?-?-?-?- Negative 140 28 -?-?-?-?-?-?-?-?-?-?-?-?- JV- no lof, vagi nal bleeding, or dec fm. passed her 3 hr and placenta is no longer a previa. 10/13/23 -?-?-?-?-?-?-?-?-?-?-?-?- 30w 4d 158 lb 6 oz (+22 lb 6 oz) 111/73 Negative -?-?-?-?-?-?-?-?-?-?-?-?- Negative 130 30 -?-?-?-?-?-?-?-?-?-?-?-?- KW- no vb/lof/ct x. good fm. LARC today. no concerns 10/29/23 -?-?-?-?-?-?-?-?-?-?-?-?- 32w 6d 157 lb (+21 lb) 109/70 Negative -?-?-?-?-?-?-?-?-?-?-?-?- Negative 140 33 -?-?-?-?-?-?-?-?-?-?-?-?- Sm- no vb lof go od fm no regular ctx 11/16/23 -?-?-?-?-?-?-?-?-?-?-?-?- 35w 3d 165 lb (+29 lb) 105/69 Negative -?-?-?-?-?-?-?-?-?-?-?-?- Negative 135 35 -?-?-?-?-?-?-?-?-?-?-?-?- KW- no vb/lof/re g ctx. good fm. 11/26/23 -?-?-?-?-?-?-?-?-?-?-?-?- 36w 6d 165 lb 2 oz (+29 lb 2 oz) 113/75 Negative -?-?-?-?-?-?-?-?-?-?-?-?- Negative 140 37 Cephalic 0 -?-?-?-?-?-?-?-?-?-?-?-?- JV- no lof, vag bleeding or dec fm. gbs today. 12/02/23 -?-?-?-?-?-?-?-?-?-?-?-?- 37w 5d 165 lb (+29 lb) 116/70 Negative -?-?-?-?-?-?-?-?-?-?-?-?- Negative 140 38 Cephalic 0 .5 -?--?-?-?-?-?-?-?-?-?-?-?- SM- no vb lof go od fm no regular ctx 12/10/23 -?-?-?-?-?-?-?-?-?-?-?-?- 38w 6d 168 lb (+32 lb) 115/78 Negative -?-?-?-?-?-?-?-?-?-?-?-?- Negative 126 38 Cephalic -?-?-?-?-?-?-?-?-?-?-?-?- JV- pt is leakin g some scant fluid. rom plus ordered. She declines bimanual ex am of cervix. no vaginal bleeding or dec fm. 12/18/23 -?-?-?-?-?-?-?-?-?-?-?-?- 40w 0d 167 lb 2 oz (+31 lb 2 oz) 117/77 Negative -?-?-?-?-?-?-?--?-?-?-?-?- Negative 145 36 Cephalic 1 -?-?-?-?-?-?-?-?-?-?-?-?- 30 -2 JV- LEANNA to day is 10.3, no lof, vaginal bleeding, or dec fm IOL at 41 weeks planned. ROS Constitutional Constitutional: Reports systems reviewed and no addt'l complaints, except as documented Gastrointestinal Gastrointestinal: Denies bloating, constipation, cramping, diarrhea, nausea or vomiting Genitourinary Genitourinary: Reports other Details: Denies vaginal odor, vaginal bleeding, or vaginal discharge ; Denies difficulty urinating or flank pain NST FHR Rate Baby A Baseline: 140 Variability:: Moderate Accelerations:: 15 x 15 Decelerations:: None NST Reactive:: Yes FHR Category:: Category I Assessment & Plan (1) False labor after 37 completed weeks of gestation: (2) Vaginal discharge during : COMMENT: ROM negative, D/C home (3) Decreased movement: COMMENT: reactive nst, BPP 8/8 and growth US-normal LEANNA (4) Refuses tetanus, diphtheria, and acellular pertussis (Tdap) vaccination: (5) Abnormal glucose affecting : COMMENT: passed 3 hour (6) Depression: QUALIFIERS: Depression Type: unspecified Qualified Code(s): F32.A - Depression, unspecified COMMENT: stable. (7) Supervision of high-risk : QUALIFIERS: Trimester: second trimester Qualified Code(s): O09.92 - Supervision of high risk , unspecified, second trimester COMMENT: PRR, , ANATOLIY 12/18/23, boy Geronimo Callum (8) : QUALIFIERS: Weeks of gestation: 37 weeks Qualified Code(s): Z3A.37 - 37 weeks gestation of COMMENT: Neg GBS. declines genetic and ntd screen. desires carrier screening. (9) Susceptible to varicella (non-immune), currently : PLAN: Plan false labor- no cervical exchange operator 51 minutes and minimal contractions. IOL is set up for 41 weeks ok to dc to home Charges/Coding Multi Select Codes Urinary/Genital Urinary/Genital CPT Codes: 50529-30 non-stress test Interp
== END 2023-12-20 11:55 | disposition home or self-care (01) ==
LOC: WPOUT 10:50 → WP 10:51
PROVIDERS: PCP Family Medicine; Visit Provider Obstetrics & Gynecology
DX: O47.1 False labor at or after 37 completed weeks of gestation (principal); Z3A.40 40 weeks gestation of pregnancy
CPT/HCPCS: 59025; 59050; 99221; G0378

== ENCOUNTER 2023-12-24 19:13 | Inpatient (IN) | payer OTHER, SELFPAY ==
[2023-12-24 19:32] VITALS: BP 117/73; PULSE 72; RESP 16; TEMP 36.7; O2SAT 99
--- NOTE | 2023-12-24 19:33 | HP.PCM.OB_ITS ---
HPI - General General Date of Admission: 12/24/23 HPI Narrative RAUL DEWITT, is a 23 y/o @ 40 weeks 6 days who presents to L&D for IOL. Her reeves score is 3. Maternal Data Information ANATOLIY Calculator Estimated Delivery Date Method Current WG Current Estimate 12/18/23 LMP (Certain) 40w 6d PFSH PFSH Medical History Psoriasis Home Medications ?Medication ?Instructions ?Recorded ?Last Taken ?Type magnesium glycinate 100 mg (as 50 mg PO DAILY 05/12/23 12/19/23 History glycinate) tablet multivit-min no.71-iron fum 28 1 cap PO DAILY 05/12/23 12/19/23 History mg-folate no.1 1 mg-dha 300 mg capsule (PNV-[place]) Allergy/AdvReac Type Severity Reaction Status Date / Time No Known Allergies Allergy Verified 12/20/23 11:18 Surgical History Reardan teeth extracted Social History adopted: No household members: spouse current occupational status: employed 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: No pets and animals: No history of recent travel: No sexually active: Yes Smoking Status: Never smoker alcohol intake: never substance use type: does not use well-balanced diet: daily or most days caffeine: No eating out: rarely or never during the past year weight has: remained stable what type of physical activity do you participate in: none arturo/adventism: Religious seatbelt use: always do you feel safe at home: Yes additional social history: Callum- [employer] History 1 Elective abortions Hx Para 0 Spontaneous abortions Hx # Term Pregnancies Ectopic pregnancies Hx # Pregnancies Multiple births # of living children Visit Details Expected Delivery Route/Plan Labor Preferences- CB/BF classes: [] labor support person: [] labor intervention preferences: [] pain management options preferred: [] cut cord/dad catch: [] : [] PP control planned: [] discussed possible routes of delivery and associated risks: [] special requests: [] Plans Covid status: [] Flu vaccine: declined Tdap vaccine: declined Rhogam: na LARC form signed: declined movement and labor precautions reviewed. Problem list reviewed and updated with the most current plan of care details and appropriate orders placed. Relevant counseling for the gestational age provided. Continue routine care and follow up unless otherwise noted in visit notes/problem list details OB Flowsheet Initial Weight: 136 lb Date -?-?-?-?-?-?-?-?-?-?-?-?- EGA Weight BP Urine Prot -?-?-?-?-?-?-?-?-?-?-?-?- Glucose FHR FuHt Pres Dilation -?-?-?-?-?-?-?-?-?-?-?-?- Effaced St Visit Note 05/13/23 -?-?-?-?-?-?-?-?-?-?-?-?- 8w 5d 136 lb 6 oz (+6 oz) 108/64 -?-?-?-?-?-?-?-?-?-?--?-?- 180 -?-?-?-?-?-?-?-?-?-?-?-?- 05/20/23 -?-?-?-?-?-?-?-?-?-?-?-?- 9w 5d 136 lb (+0 oz) 102/69 Negative -?-?-?-?-?-?-?-?-?-?-?-?- Negative -?-?-?-?-?-?-?-?-?-?-?-?- nurse visit only . urine dip and culture sent. culture pending, treat based on culture as dip inconclusive. 06/11/23 -?-?-?-?-?-?-?-?-?-?-?-?- 12w 6d 135 lb (-16 oz) 105/68 Negative -?-?-?-?-?-?-?-?-?-?-?-?- Negative 150 -?-?-?-?-?-?-?-?-?-?-?-?- SM- no vb crmapi ng 07/07/23 -?-?-?-?-?-?-?-?-?-?-?-?- 16w 4d 140 lb 6 oz (+4 lb 6 oz) 102/64 Negative -?-?-?-?-?-?-?-?-?-?-?-?- Negative 144 -?-?-?-?-?-?-?-?-?-?-?-?- MH-No VB. Nausea improving. Will do labs 2/7. 08/03/23 -?--?-?-?-?-?-?-?-?-?-?-?- 20w 3d 147 lb 6 oz (+11 lb 6 oz) 102/68 Negative -?-?-?-?-?-?-?-?-?-?-?-?- Negative 145 -?-?-?-?-?-?-?-?-?-?-?-?- LC- nob labs nor mal. repeat us at [facility] radiology for placenta location. no vb/cramping. occ movement. 09/01/23 -?-?-?-?-?-?-?-?-?-?-?-?- 24w 4d 152 lb 6 oz (+16 lb 6 oz) 118/78 Negative -?-?-?-?-?-?-?-?-?-?-?-?- Negative 135 24 -?-?-?-?-?-?-?-?-?-?-?-?- kw- no vb/crampi ng. good fm. 28 week labs discussed. has repeat US scheduled 09/30/23 -?-?-?-?-?-?-?-?-?-?-?-?- 28w 5d 158 lb 8 oz (+22 lb 8 oz) 110/69 Negative -?-?-?-?-?-?-?-?-?-?-?-?- Negative 140 28 -?-?-?-?-?-?-?-?-?-?-?-?- JV- no lof, vagi nal bleeding, or dec fm. passed her 3 hr and placenta is no longer a previa. 10/13/23 -?-?-?-?-?-?-?-?-?-?-?-?- 30w 4d 158 lb 6 oz (+22 lb 6 oz) 111/73 Negative -?-?-?-?-?-?-?-?-?-?-?-?- Negative 130 30 -?-?-?-?-?-?-?-?-?-?-?-?- KW- no vb/lof/ct x. good fm. LARC today. no concerns 10/29/23 -?-?-?-?-?-?-?-?-?-?-?-?- 32w 6d 157 lb (+21 lb) 109/70 Negative -?-?-?-?-?-?-?-?-?-?-?-?- Negative 140 33 -?-?-?-?-?-?-?-?-?-?-?-?- Sm- no vb lof go od fm no regular ctx 11/16/23 -?-?-?-?-?-?-?-?-?-?-?-?- 35w 3d 165 lb (+29 lb) 105/69 Negative -?-?-?-?-?-?-?-?-?-?-?-?- Negative 135 35 -?-?-?-?-?-?-?-?-?--?-?-?- KW- no vb/lof/re g ctx. good fm. 11/26/23 -?-?-?-?-?-?-?-?-?-?-?-?- 36w 6d 165 lb 2 oz (+29 lb 2 oz) 113/75 Negative -?-?-?-?-?-?-?-?-?-?-?-?- Negative 140 37 Cephalic 0 -?-?-?-?-?-?-?-?-?-?-?-?- JV- no lof, vag bleeding or dec fm. gbs today. 12/02/23 -?-?-?-?--?-?-?-?-?-?-?-?- 37w 5d 165 lb (+29 lb) 116/70 Negative -?-?-?-?-?-?-?-?-?-?-?-?- Negative 140 38 Cephalic 0 .5 -?-?-?-?-?-?-?-?-?-?--?-?- SM- no vb lof go od fm no regular ctx 12/10/23 -?-?-?-?-?-?-?-?-?-?-?-?- 38w 6d 168 lb (+32 lb) 115/78 Negative -?-?-?-?-?-?-?-?-?-?-?-?- Negative 126 38 Cephalic -?-?-?-?-?-?-?-?-?-?-?-?- JV- pt is leakin g some scant fluid. rom plus ordered. She declines bimanual exam of cervix. no vaginal bleeding or dec fm. 12/18/23 -?-?-?-?-?-?-?-?-?-?-?-?- 40w 0d 167 lb 2 oz (+31 lb 2 oz) 117/77 Negative -?-?-?-?-?-?-?-?-?-?-?-?- Negative 145 36 Cephalic 1 -?-?-?-?-?-?-?-?-?-?-?-?- 30 -2 JV- LEANNA to day is 10.3, no lof, vaginal bleeding, or dec fm IOL at 41 weeks planned. ROS Constitutional Constitutional: Denies change in weight, fatigue, fever(s), headache(s), poor appetite or weakness Eyes Eyes: Denies blurry vision, change in vision, seeing flashes or spots in vision ENT HEENT: Denies dizziness, headache(s), loss taste/smell or sore throat Cardiovascular Cardiovascular: Denies chest pain, dizziness, dyspnea, irregular heart rhythm, leg edema, palpitations, rapid heart rate or vomiting Respiratory/Chest Respiratory/Chest: Denies chest tightness, cough, dyspnea or breast pain Gastrointestinal Gastrointestinal: Denies abdominal pain, anorexia, constipation, cramping, diarrhea, hemorrhoids, vomiting or weight changes Genitourinary Genitourinary: Denies dysuria, flank pain, genital lesions, genital pain, urinary frequency or urinary urgency Musculoskeletal Musculoskeletal: Denies back pain, difficulty walking, joint pain, limited range of motion, muscle cramps or numbness Integumentary Integumentary: Denies lesions or unusual bruising Neurologic Neurologic: Denies abnormal movements, abnormal speech, dizziness, numbness, seizure-like activity or syncope Psychiatric Psychiatric: Denies anxiety, behavioral changes, change in appetite, change in libido, cognitive impairment, confusion, depression, difficulty concentrating, hallucinations or suicidal thoughts Endocrine Endocrinology: Denies excessive sweating, polydipsia or polyuria Hematologic/Lymphatic Hematologic/Lymphatic: Denies easy bleeding, easy bruising or lymphadenopathy Allergic/Immunologic Allergic/Immunologic: Denies itchy eyes, lip swelling, seasonal rhinorrhea, rhinitis, throat swelling, tongue swelling, eczemia, wheezing or asthma Vital Signs Vital Signs Vital Signs: 12/24/23 19:32 12/24/23 19:32 12/24/23 19:32 Temperature 98.1 F Pulse Rate 72 Blood Pressure 117/73 BP Systolic 117 BP Diastolic 73 Physical Exam Const alert, oriented x3, no apparent distress and healthy appearing General Appearance: cooperative; Negative for anxious HEENT normocephalic Face and Sinus: normal facial exam Eyes EOMs intact bilaterally and no scleral icterus General Eye: normal appearance of both eyes Neck full ROM and supple Lymph Lymphatic: no lymphadenopathy noted Chest Chest: abnormal inspection of the chest Resp normal respiratory effort Effort and Inspection: able to speak in complete sentences Cardio regular rate GI soft to palpation and non-tender Inspection: gravid Palpation: soft; Negative for tender Back/Spine no CVA tenderness Extremity normal to inspection, full ROM and no clubbing, cyanosis or edema General Extremity: Negative for calf tenderness or edema Skin Lesions: no lesions Rashes: no rashes Psych mental status grossly normal Labs Labs Labs: Blood Type O POSITIVE Antibody Screen NEGATIVE Hct 37.1 % (37-47) Hgb 11.9 g/dL (12.0-15.0) L Obstetrics Ultrasound Syphilis Total Ab Non-reactive Rubella IgG Antibody Reactive (Nonreactive) Hep Bs Antigen Non-Reactive (Nonreactive) Hepatitis C Antibody Non-Reactive (Nonreactive) Chlamydia DNA (MARIE) Negative (Negative) N.gonorrhoeae DNA (MARIE) Negative (Negative) HIV 1&2 Antibody Non-Reactive (Nonreactive) Glucose 1 Hr 50 gm 164 mg/dL (70-140) H Gest Glucose Tolerance MG/DL Miscellaneous Test Assessment & Plan (1) Vaginal discharge during : COMMENT: ROM negative, D/C home (2) Decreased movement: COMMENT: reactive nst, BPP 8/8 and growth US-normal LEANNA (3) Refuses tetanus, diphtheria, and acellular pertussis (Tdap) vaccination: (4) Abnormal glucose affecting : COMMENT: passed 3 hour (5) Depression: QUALIFIERS: Depression Type: unspecified Qualified Code(s): F32.A - Depression, unspecified COMMENT: stable. (6) Supervision of high-risk : QUALIFIERS: Trimester: second trimester Qualified Code(s): O09.92 - Supervision of high risk , unspecified, second trimester COMMENT: PRR, , ANATOLIY 12/18/23, boy Geronimo Callum (7) : QUALIFIERS: Weeks of gestation: 37 weeks Qualified Code(s): Z3A.37 - 37 weeks gestation of COMMENT: Neg GBS. declines genetic and ntd screen. desires carrier screening. (8) Susceptible to varicella (non-immune), currently : PLAN: Plan Patient presents IOL, plan management for with cytotec then pitocin as needed . Pain management: plans epidural. GBS negative. Management of any complications: none I have reviewed the [facility] and made any clinically relevant updates.
[2023-12-24 19:52] VITALS: BMI 26.4
[2023-12-24 20:11] LABS: Absolute Lymphocyte Count 2.63 X10^3/uL (0.83-4.51); Absolute Neutrophil Count 7.8 X10^3/uL (2.0-7.7); Basophil# 0.07 X10^3/uL; Basophil% 0.6 % (0-1); Eosinophil# 0.13 X10^3/uL; Eosinophils% 1.1 % (0-5); Hematocrit 33.1 % (37-47); Hemoglobin 10.8 g/dL (12.0-15.0); Lymphocyte # 2.63 X10^3/ul (0.83-4.51); Lymphocyte % 22.4 % (19-41); Mean Corp Hgb Conc 32.6 g/dL (32-36); Mean Corpuscular Hgb 27.2 pg (27.0-32.0); Mean Corpuscular Volume 83.4 fL (81-99); Mean Platelet Vol. 11.5 fl (6.2-12.0); Monocyte# 1.03 X10^3/uL; Monocyte% 8.8 % (0-10); NRBC Flagged by Analyzer 0 % (0-5); Neutrophil # 7.82 X10^3/uL (2.7-7.7); Neutrophil % 66.8 % (47-70); Platelet Count 247 K/mm3 (150-450); RBC Distribution Width CV 14.2 % (11.6-14.6); RBC Distribution Width SD 42.7 fl (35.1-43.9); Red Blood Count 3.97 M/mm3 (4.2-5.4); White Blood Count 11.7 K/mm3 (4.4-11.0)
[2023-12-24] MEDS: miSOPROStol 25 MCG TABLET VAGINAL (20:38)
[2023-12-24 20:49] LABS: Syphilis Antibodies Non-reactive
[2023-12-24 21:16] LABS: ROM Internal Control Test YES-OK TO RESULT pt. (Internal QC); ROM Patient Test Negative (Negative); Record Kit Lot#, ROM+ K1866
[2023-12-24 21:40] VITALS: BP 116/62; PULSE 75; RESP 14; TEMP 36.8
[2023-12-25] VITALS (65 sets, daily range): BP systolic 109–162; BP diastolic 53–89; PULSE 48–190; RESP 14–18; TEMP 36.4–37.4; O2SAT 93–100
[2023-12-25] MEDS: miSOPROStol 25 MCG TABLET VAGINAL (00:32)
[2023-12-25 02:10] LABS: ROM Internal Control Test YES-OK TO RESULT pt. (Internal QC)
[2023-12-25 02:11] LABS: ROM Patient Test POSITIVE (Negative); Record Kit Lot#, ROM+ K1866
[2023-12-25] MEDS: Lactated Ringers 1,000 ML 999 ML IV (02:27)
[2023-12-25] MEDS: fentaNYL-bupivacaine (epidural) 100 ML BAG EPIDURAL ×2 (03:11→07:31)
[2023-12-25] MEDS: Lactated Ringers 1,000 ML 200 ML IV (03:28)
[2023-12-25] MEDS: LACTATED RINGERS 500 ML 999 ML IV (05:24)
[2023-12-25] MEDS: Amnioinfusion- 0.9% NS 1,000 ML IV.SOLN. 1000 ML INTRA-UTER (06:57)
[2023-12-25] MEDS: Oxytocin 15 Units/NS 250ml 15 UNITS/250 ML IV.SOLN 334 UNITS IV (08:21)
[2023-12-25] MEDS: Methylergonovine 0.2 MG/ML Ampul IM (08:25)
--- NOTE | 2023-12-25 08:56 | EX.PCM.OBRPT ---
Assessment & Plan (1) Spontaneous vaginal delivery: COMMENT: LC 41 weeks boy:Juanpablo Maternal Data Information ANATOLIY Calculator Estimated Delivery Date Method Current WG Current Estimate 12/18/23 LMP (Certain) 41w 0d Final ANATOLIY: 12/18/23 Final ANATOLIY Source: LMP Gestational age: 41 Vaginal Delivery Maternal Presentation Maternal Presentation: Active Labor Type of Induction: Cytotec Medical Reason for Induction: Post term Operative Information Date of Procedure: 12/25/23 Pre-Operative Diagnosis: see problem list Post-Operative Diagnosis: Surgery / Procedure Performed: Spontaneous Vaginal Delivery Type of Anesthesia: Epidural Drain: Henderson to straight drain Estimated Blood Loss: 600 Time of Delivery: 08:11 Findings Description of Procedure: Patient began pushing and delivered the head in the SANDRA presentation. The head was delivered atraumatically and a tight nuchal cord ?1 was identified and decision made to deliver through. The anterior and posterior shoulders delivered without complication followed by the rest of the and the infant was placed on the maternal abdomen. Delayed cord clamping was employed for approximately 60 seconds. Cord was clamped and cut and gentle traction was applied to the cord and the placenta delivered spontaneously immediately following it was noted to be intact with three-vessel cord. The perineum and vagina were inspected and noted to have 1st degree laceration, repaired with 3-0 Vicryl in standard fashion. EBL was 600cc, Methergine, increased Pitocin given and manual extraction of clots, fundus now firm at u with excellent hemostasis achieved.. Patient and infant tolerated delivery well. Presentation: Vertex Amniotic Membrane Rupture Type: Spontaneous Amniotic Fluid Description: Clear Placental Delivery Description: Spontaneous Placenta Disposition: [facility] Cord Vessel Description: 3 Vessels Cord Entanglement: Around neck x 1, tight A Gender: Male (1 minute): 8 (5 minute): 9 Delayed Cord Clamping: Yes Post Vaginal Delivery Medications Given After Delivery: IV Pitocin and IM Methergin Episiotomy Description: None Laceration: 1st degree Complication Complications: - (hemorrhage 600ml) Multi Select Codes Urinary/Genital Urinary/Genital CPT Codes: 08220 Vaginal Delivery [facility]
[2023-12-25] MEDS: Oxytocin 15 Units/NS 250ml 15 UNITS/250 ML IV.SOLN 83 UNITS IV (09:03)
--- NOTE | 2023-12-25 09:03 | PCM.DC ---
Discharge Instructions Diet Discharge Diet: No restrictions Activity Discharge Activity: May Not Drive and May Shower May resume sexual activity in: 6 weeks Weight Bearing Status: Full weight bearing Dressing / Incision Call your doctor if your incision/area has: Sudden Increased Bleeding, Increased Pain/ Swelling and Foul Smelling Discharge Call your doctor if you observe: Fever of 101 or Higher, Numbness or Tingling, Change in Color, Inability to urinate, Inability to have a bowel movement, Using more than 1 pad per hour, Shortness of breath, Dizziness, Fainting spells, Chest pain, Calf discomfort and Uncontrolled pain Follow Up Care Please Follow Up With: Aeme Subramanian CNM When: 6 weeks , please call office to make an appointment. Congratulations on the of your baby! Test Results: Test results from this visit will be discussed in further detail at your follow-up appointment, if applicable. Discharge Plan Admission Admit Date/Time: 12/24/23 19:13 Attending Provider: Amee Subramanian Primary Care Provider: Isaak Ramon Discharge Orders/Prescriptions Prescriptions: No Action PNV-[place] 28-1-300 mg capsule 1 cap PO DAILY magnesium glycinate 100 mg tablet 50 mg PO DAILY Referrals / Follow Up: Isaak Ramon MD [Primary Care Provider] - Disposition Disposition (needs filled in before D/C Order can be placed): Home, Self Care
[2023-12-25] MEDS: 0.9% Saline Lock 10 ML Syringe IV (09:04)
[2023-12-25] MEDS: Ondansetron 4 MG/2 ML Vial IV (09:04)
[2023-12-25] MEDS: Cefazolin 2 GM in 0.9% Normal Saline (100mL Bag) 100 ML IV (09:39)
--- NOTE | 2023-12-25 15:16 | CASEMGMT ---
Social Work Assessment Labor and Delivery Unit Patient Address: [address] [place] [address] Phone number:[phone] Date of Referral: 12/24/23 Time of Referral:? 2014 Referred By: Dr. Reddy Date of Intervention: ??12/25/23 Time of Intervention:? 141 Reason for Referral:? mother addict/ alcoholic. Some depressed thoughts Sw presented to bedside and introduced self to mother of baby (MOB- Eboni) and father of baby (FOB- Callum). Sw explained reason for sw involvement and completed psychosocial assessment. History obtained from: medical records, MOB and FOB Household composition: Currently residing in the family home is MOB, FOB and when ready for discharge. Housing is reported to be safe and secure, no concerns. Patient's parent/guardian status:? ?Parents report that they met each other while they were both attending the [facility] [employer] [facility], and have been together for five years. No concerns reported of domestic violence or intimate partner violence. Medical History: ?WAI is 23 year old female who is 1, para 0- now 1 following labor and delivery of . WAI received routine care during with [place]. WAI presented to hospital for an induction of labor at 41 weeks gestation. WAI delivered baby via vaginal delivery on 12/25/23. Baby boy, was named Juanpablo Coelho and had apgars of 8 and 9 at one and five minutes of life, respectfully. Educational Status:? Both parents graduated from high school. No concerns with reading, learning or comprehension Financial Status: Both parents are gainfully employed outside of the home. 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 Supplies:??Parents have obtained all necessary baby supplies, including: car seat, safe sleep space, clothes, diapers and wipes. Childcare/Caregiver(s):? WAI states that she will be the primary caregiver to baby along with EVER when he is not at work. Transportation:?Both parents have their drivers license and reliable means of transportation. No barriers at this time. ? Programs/Agencies Involved: ???Parents are not connected to any community agencies that assist them financially. Parents deny any linkage to mental health services or supports. Children Services/Legal Issues:???No history of children services involvement, no issues or concerns warranting referral to be made. Behavioral Health Issues: ??Mental Health History:?FOB denies mental health history. MOB states that she has some depression, and did experience some depressed thoughts during . MOB denies being diagnosed with anxiety, and states that she is not prescribed medications to help manage her symptoms. ?? Substance Use History:?Parents deny substance use prior to and during . ? Family History:?MOB states that her mother is an addict and alcoholic. MOB states that she has never been cared for by her mother. MOB states that her mom did have a drug overdose in 2016. MOB reports that due to her maternal history of addiction she has never been one to use substances, even socially or recreationally. ? Drug Screens: ??No drug screens observed in chart review. Family/Social Stressors: Parents deny any issues, concerns or stressors at this time. ? Support Systems: Parents report that family, grandparents and friends are their biggest support system at this time. Depression/Shaken Baby/Safe Sleeping:? Sw educated parents on signs and symptoms of baby blues and mood and anxiety disorders to be on the lookout for. MOB stated that she is worried about struggling with her mental helth during this period. FOB states that he would be able to recognize if she is struggling and would know how to help and support her. Sw provided parents with literature to review with symptoms of mood and anxiety symptoms to be on the look out for. Sw answered questions. Sw educated parents on shaken baby prevention and ABCs of safe sleep. Parents expressed understanding. ASSESSMENT:? MOB and baby admitted following labor and delivery. MOB with family history of addiction. Parents educated to be mindful of genetic dispositions and to always use healthy and appropriate coping skills opposed to seeking comfort from drugs or alcohol. Parents express understanding. Parents have obtained all necessary baby supplies and have natural supports in place. MOB with history of some depression and vocalizes that she is worried about experiencing symptoms during this time. Parents educated at length regarding what to watch out for, and what kinds of resources are available to them. MOB observed to hold baby lovingly and appropriately. FOB was observed to be positive support to MOB. Parents were talkative and engaged throughout completion of psychosocial assessment. Handouts also provided on: safe sleep, shaken baby prevention, Help Me Grow and [facility] resources including mental health agencies. PLAN:? MOB and baby to be discharged when medically ready. ?No other services requested or indicated. Juan Carlos Lucas, BAND CUTTING MACHINE OPERATOR, MANAGER MARKET RESEARCH
[2023-12-25] MEDS: Acetaminophen 500 MG Tablet 1000 MG PO (17:05)
[2023-12-25] MEDS: Naproxen 500 MG Tablet PO (21:05)
[2023-12-26] VITALS (10 sets, daily range): BP systolic 105–118; BP diastolic 65–80; PULSE 58–67; RESP 16; TEMP 36.3–37; O2SAT 97–98
[2023-12-26 05:49] LABS: Absolute Lymphocyte Count 2.92 X10^3/uL (0.83-4.51); Absolute Neutrophil Count 10.8 X10^3/uL (2.0-7.7); Basophil% 0.7 % (0-1); Eosinophil# 0.15 X10^3/uL; Hematocrit 33.5 % (37-47); Hemoglobin 10.4 g/dL (12.0-15.0); Lymphocyte # 2.92 X10^3/ul (0.83-4.51); Lymphocyte % 19.5 % (19-41); Mean Corpuscular Hgb 27.6 pg (27.0-32.0); Mean Corpuscular Volume 88.9 fL (81-99); Mean Platelet Vol. 11.4 fl (6.2-12.0); Monocyte# 0.97 X10^3/uL; Monocyte% 6.5 % (0-10); NRBC Flagged by Analyzer 0 % (0-5); Neutrophil % 71.8 % (47-70); Platelet Count 255 K/mm3 (150-450); RBC Distribution Width CV 14.6 % (11.6-14.6); RBC Distribution Width SD 46.4 fl (35.1-43.9); Red Blood Count 3.77 M/mm3 (4.2-5.4)
[2023-12-26] MEDS: Acetaminophen 500 MG Tablet 1000 MG PO (09:19)
--- NOTE | 2023-12-26 09:21 | PCM.PN.OB ---
Subjective Subjective Patient doing well without complaints. Tolerating PO. Ambulating and voiding without difficulty. Feeding well. Denies chest pain, shortness of breath, calf pain/swelling, fevers, chills, lightheadedness. Objective Data Objective Data Vital Signs: Vital Signs Temp Pulse Resp BP Pulse Ox O2 Del Method 97.4 F L 64 16 118/80 96 Room Air 12/26/23 04:42 12/26/23 04:42 12/26/23 04:42 12/26/23 04:42 12/25/23 21:00 12/26/23 04:42 Oxygen Delivery Method Room Air Weight: 164 lb Body Mass Index (BMI) 26.4 Intake & Output: Intake and Output for Last 24 Hours 12/24/23 12/25/23 12/26/23 23:59 23:59 23:59 Intake Total 2950.00 / 2950.00 Output Total 2200 / 2200 Balance 750.00 / 750.00 Lab / Micro Data 12/26/23 05:45 Labs: Laboratory Results - last 24 hr 12/26/23 05:45: WBC 15.0 H, RBC 3.77 L, Hgb 10.4 L, Hct 33.5 L, MCV 88.9 D, MCH 27.6, MCHC 31.0 L, RDW Std Deviation 46.4 H, RDW Coeff of Edgard 14.6, Plt Count 255, MPV 11.4, Immature Gran % (Auto) 0.500, Neut % (Auto) 71.8 H, Lymph % (Auto) 19.5, Warrick % (Auto) 6.5, Eos % (Auto) 1.0, Baso % (Auto) 0.7, Absolute Neuts (auto) 10.8 H, Absolute Lymphs (auto) 2.92, Nucleated RBC % 0 Physical Exam Const alert and oriented x3 Eyes PERRL Neck full ROM Lymph Lymphatic: no lymphadenopathy noted Chest inspection of chest normal and inspection of breasts normal Resp normal respiratory effort and normal air movement Cardio regular rate and regular rhythm GI normal to inspection, nondistended, normoactive bowel sounds Uterus Palpation: uterus fundus firm Extremity normal to inspection, full ROM and no calf tenderness Skin no rashes or lesions noted Psych mental status grossly normal Assessment & Plan (1) Hemorrhage: COMMENT: 600 EBL-s/p pit/methergine CBC in am/ ancef 2g for manual removal of clots PLAN: stable cbc this AM. asymptomatic (2) Depression: QUALIFIERS: Depression Type: unspecified Qualified Code(s): F32.A - Depression, unspecified COMMENT: stable. (3) Spontaneous vaginal delivery: COMMENT: LC 41 weeks boy:Juanpablo PLAN: Plan s/p PPD # 1 1. routine post delivery care 2. breast feeding- support given 3. rh positive 4. rubella immune
--- NOTE | 2023-12-26 11:19 | NURSING ---
Report given to Carolynn Arriola RN at this time. She is assuming patient care.
[2023-12-26] MEDS: Naproxen 500 MG Tablet PO (13:34)
== END 2023-12-26 20:10 | disposition home or self-care (01) | DRG 807 ==
PROVIDERS: Admitting Provider Obstetrics & Gynecology; PCP Family Medicine; Visit Provider Registered Nurse
DX: O48.0 Post-term pregnancy (principal); Z37.0 Single live birth; O42.02 Full-term premature rupture of membranes, onset of labor within 24 hours of rupture; O69.1XX0 Labor and delivery complicated by cord around neck, with compression, not applicable or unspecified; O70.0 First degree perineal laceration during delivery; Z3A.41 41 weeks gestation of pregnancy; Z28.21 Immunization not carried out because of patient refusal
CPT/HCPCS: 59025; 59050; 84112; 85025; 86780; 86850; 86900; 86901; 99221; J7030; J7120; A4216; G0378; J2405